=== PATIENT | male | born 1940 | race African-American/Black ===

== ENCOUNTER 2018-10-07 12:46 | Emergency (ER) | payer MEDICARE, OTHER, SELFPAY ==
[2018-10-07 12:56] VITALS: BP 135/89; PULSE 113; RESP 20; TEMP 37.1; O2SAT 94; BMI 38.6
--- NOTE | 2018-10-07 13:42 | ED.MALEGU ---
HPI - Male Genitourinary <Judy Singh PA-C - Last Filed: 10/07/18 21:41> General Chief complaint: Urogenital-Male Stated complaint: possible kidney stones Time Seen by Provider: 10/07/18 13:35 Source: patient Mode of arrival: ambulatory Limitations: no limitations History of Present Illness HPI Narrative: This 77-year-old male comes to ED due to urinary symptoms. He states that last night he started to have burning with urination and he saw blood in his urine as well as ?debris? with different sized pieces. He states that he had a lot of urinary frequency last night, probably up 14-15 times. He states that symptoms are somewhat better today, thinks he saw a little bit of blood in his urine this morning along with the debris. Frequency is improved. He denies nausea or vomiting. He denies fever, chills, sweats. He states that he has had some increased back ache in the last week or 2, denies any new trauma or localized pain and describes this as more stiffness. He denies any bowel habit changes. He states that he did eat crab last night which he does not do often. He denies abdominal pain but states he feels somewhat bloated all over. He denies chest pain, dyspnea, new pain in the extremities or swelling or other new complaints on systems review today. He states he does have a history of abnormal CT and diverticulitis which he did follow up in [place]. He denies any other medical history Related Data Home Medications Medication Instructions Recorded Confirmed aspirin 81 mg PO QDAY #0 11/18/17 Previous Rx's Medication Instructions Recorded docusate sodium [Colace] 100 mg PO BID #15 cap 06/24/16 glycerin (adult) 1 ea RC SEE INSTRUCTIONS #12 06/24/16 magnesium citrate 273 ml PO SEE INSTRUCTIONS #1 bot 06/24/16 polyethylene glycol 3350 [Miralax] 17 gm PO QDAY #14 07/19/16 cyclobenzaprine 10 mg PO TIDP PRN #14 tab 11/18/17 sulfamethoxazole-trimethoprim 1 tab PO Q12H #14 tab 10/07/18 [Bactrim DS] Allergies Allergy/AdvReac Type Severity Reaction Status Date / Time ciprofloxacin [From CIPRO] Allergy Unknown Unverified 01/02/18 13:07 indomethacin [From INDOCIN] Allergy Unknown Unverified 01/02/18 13:07 Review of Systems <Judy Singh PA-C - Last Filed: 10/07/18 21:41> Review of Systems ROS Unobtainable: All systems reviewed & are unremarkable except as noted in HPI and below PFSH <Judy Singh PA-C - Last Filed: 10/07/18 21:41> Comment: Never smoker, rare EtOH Exam <Judy Singh PA-C - Last Filed: 10/07/18 21:41> Narrative Exam Narrative: GENERAL APPEARANCE: Patient sitting comfortably, in no distress. HEENT: PERRL, EOMI, no scleral icterus NECK: Supple LUNGS: Clear to auscultation bilaterally. HEART: Rate and rhythm regular, normal S1 and S2, no S3 or S4. ABDOMEN: Soft, nontender, nondistended, bowel sounds present x 4 quadrants, no masses palpable, no hepatosplenomegaly. No CVAT or suprapubic tenderness EXTREMITIES: No edema, no calf tenderness DERMATOLOGIC: No jaundice or exanthem NEUROLOGIC: Alert and oriented with normal speech and coordination Initial Vital Signs Initial Vital Signs: Vital Signs Temperature 98.7 F 10/07/18 12:56 Pulse Rate 113 H 10/07/18 12:56 Respiratory Rate 20 10/07/18 12:56 Blood Pressure 135/89 10/07/18 12:56 Pulse Oximetry 94 10/07/18 12:56 <Sadie Connolly DO - Last Filed: 10/08/18 07:56> Initial Vital Signs Initial Vital Signs: Vital Signs Temperature 98.7 F 10/07/18 12:56 Pulse Rate 113 H 10/07/18 12:56 Respiratory Rate 20 10/07/18 12:56 Blood Pressure 135/89 10/07/18 12:56 Pulse Oximetry 94 10/07/18 12:56 Course <Judy Singh PA-C - Last Filed: 10/07/18 21:41> Additional Information: The patient was feeling significantly improved and was sleeping prior to departure. Symptoms had improved significantly from last night. No acute findings on his KUB CT though he describes significant debris in urine and could have passed a stone. He does have evidence of urinary infection, not clearly pyelo versus cystitis, no evidence of ongoing prostatitis. Started on Bactrim and advised follow-up with his PCP in 2-3 days to assess progress, review cultures, and make sure hematuria has resolved. He agreed to return if any acutely worsening symptoms again. Also discussed mesenteric lesion with him again. From what he describes he has seen GI and surgeon in [place]. He was given CT on disc and agrees to follow up on this as well. Orders Ordered: ED Orders 10/07/18 12:50 Urine Culture Stat Urine Microscopic Stat 10/07/18 14:00 CT kidney ureter bladder (KUB) Stat Vital Signs - 8 hr 10/07/18 12:56 10/07/18 14:30 10/07/18 15:00 Temperature 98.7 F Pulse Rate 113 H 100 H 101 H Respiratory Rate 20 Blood Pressure 135/89 Blood Pressure [Right Arm] 122/75 118/65 Pulse Oximetry 94 94 92 <Sadie Connolly DO - Last Filed: 10/08/18 07:56> Orders Ordered: ED Orders 10/07/18 12:50 Urine Culture Stat Urine Microscopic Stat 10/07/18 14:00 CT kidney ureter bladder (KUB) Stat Vital Signs - 8 hr 10/07/18 12:56 10/07/18 14:30 10/07/18 15:00 Temperature 98.7 F Pulse Rate 113 H 100 H 101 H Respiratory Rate 20 Blood Pressure 135/89 Blood Pressure [Right Arm] 122/75 118/65 Pulse Oximetry 94 94 92 MDM - Male Genitourinary <Judy Singh PA-C - Last Filed: 10/07/18 21:41> Lab Data Lab Results 10/07/18 Range/Units 12:50 Urine RBC >100/hpf (0-5/HPF) Urine WBC 30-100/hpf H (0-5/HPF) Urine Bacteria Few (2-10) H (None) Ur Culture Indicated? Specimen cultured Urine Dip Bedside Urine Glucose Negative Bedside Urine Bilirubin - Negative Bedside Urine Ketone - Negative Urine Specific Cassel 1.020 Bedside Urine Occult Blood +++ Bedside Urine pH 6.0 Bedside Urine Protein + 30 Bedside Urine Urobilinogen +/- 1mg Bedside Urine Nitrite - Negative Bedside Urine Leukocytes + 70 Esterase <DO Arnoldo Modi Last Filed: 10/08/18 07:56> Lab Data Lab Results 10/07/18 Range/Units 12:50 Urine RBC >100/hpf (0-5/HPF) Urine WBC 30-100/hpf H (0-5/HPF) Urine Bacteria Few (2-10) H (None) Ur Culture Indicated? Specimen cultured Urine Dip Bedside Urine Glucose Negative Bedside Urine Bilirubin - Negative Bedside Urine Ketone - Negative Urine Specific Cassel 1.020 Bedside Urine Occult Blood +++ Bedside Urine pH 6.0 Bedside Urine Protein + 30 Bedside Urine Urobilinogen +/- 1mg Bedside Urine Nitrite - Negative Bedside Urine Leukocytes + 70 Esterase Discharge Plan Departure Patient Disposition: Home Clinical Impression: Cystitis Discharge Date/Time: 10/07/18 15:47 Interventions: ED Discharge Assessment Last Done: 10/07/18 15:46 Instructions: DI for Urinary Tract Infection (UTI) Activity Restrictions/Additional Instructions: I have sent a prescription in to your pharmacy to treat for a urinary infection. It is not clear that you had a kidney or prostate infection today, however I want you to be sure to follow up with your PCP in a few days to determine whether you might need a longer course of antibiotics. You should start the antibiotic as soon as you pick it up today as we want you to take that while your culture is pending. You should return if you have any acutely worsening symptoms, or new symptoms as we talked about such as abdominal pain, vomiting or fever. In addition, the abnormality on your CT that you had seen the GI doctor about and surgeon in [place] is still there. Please make sure you follow-up on this. I have given you a copy of your radiology study on disc today so that this can be compared to any studies done in outside facilities. Prescriptions: New sulfamethoxazole-trimethoprim [Bactrim DS] 800-160 mg tablet 1 tab PO Q12H Qty: 14 RF: 0 No Action docusate sodium [Colace] 100 MG capsule 100 mg PO BID Qty: 15 RF: 0 magnesium citrate 296 ML solution 273 ml PO SEE INSTRUCTIONS Qty: 1 RF: 0 glycerin (adult) 1 EACH suppository 1 ea RC SEE INSTRUCTIONS Qty: 12 RF: 0 polyethylene glycol 3350 [Miralax] 17 GM powder in packet 17 gm PO QDAY Qty: 14 RF: 0 aspirin 81 MG tablet,delayed release (DR/EC) 81 mg PO QDAY Qty: 0 RF: 0 cyclobenzaprine 10 MG tablet 10 mg PO TIDP PRNQty: 14 RF: 0 Referrals: Destin Lopez MD [Primary Care Provider] - <Sadie Connolly DO - Last Filed: 10/08/18 07:56> Cosign ED Attending Cosignature Attestation: I was immediately available in the department for consultation. This documentation has been reviewed and I agree with assessment and plan. Supervised by Sadie Connolly DO
--- NOTE | 2018-10-07 14:00 | DI.CT.S_ITS ---
PROCEDURE: CT KIDNEY URETER BLADDER (KUB) INDICATIONS: hematuria, debris, back pain TECHNIQUE: Noncontrast 5 mm thick sections acquired from the diaphragms to the symphysis. 5 mm thick coronal and sagittal reformats were then performed. For radiation dose reduction, the following was used: automated exposure control, adjustment of mA and/or kV according to patient size. COMPARISON: [facility], CT, CHEST/ABD/PEL W&WO CONTRAST, 11/18/2017, 19:57. [facility], CR, CHEST 1 VIEW, 11/18/2017, 19:28. FINDINGS: Image quality: Excellent. Lung bases: Lung bases are clear. Heart size is normal. A small hiatal hernia is incidentally noted. Urinary system: Both kidneys are normal in size. No kidney stones. No hydronephrosis or perinephric fat stranding. Both ureters appear non-dilated throughout their expected courses. The prostate gland is enlarged, measuring 6.4 cm. [place] calcifications can be seen within it. There is moderate circumferential bladder wall thickening is seen. No focal bladder wall thickening is seen. No bladder stones are seen. Other solid organs: Liver is normal in size. Diffuse fatty liver infiltration is noted. Gallbladder demonstrates no significant noncontrast abnormality. Pancreas is normal in contours. Spleen is normal in size. No adrenal nodules. Peritoneum and bowel: Within the left mesentery, there is an apparent spiculated soft tissue lesion seen, which is similar to the prior examination. Diverticulosis is seen, without findings of active diverticulitis. Unenhanced bowel loops demonstrate normal wall thickness and caliber. No free fluid or air. Incidental note is made of a normal-appearing appendix. Nodes and vessels: No retroperitoneal or mesenteric adenopathy by size criteria. Aorta and inferior vena cava are normal in caliber. Atherosclerotic calcification is noted. Abdominal wall: A mild periumbilical hernia is seen, containing fat. Pelvis: No free pelvic fluid. No enlarged inguinal or pelvic lymph nodes are seen. There is a fat-containing right inguinal hernia seen. Bones: No suspicious bony lesions. No vertebral body compression fractures. Age-appropriate bony degenerative changes are seen. Mild dextroconvex scoliotic curvature is seen. IMPRESSION: No stones or hydronephrosis can be seen. Spiculated focus within the left mesentery, which is similar to the prior examination. Differential diagnosis for this includes carcinoid tumor. Please correlate with known patient history. Prominent prostate with moderate circumferential bladder wall thickening. Please correlate with bladder outlet obstruction. Incidental note is made of: Small hiatal hernia Fatty liver infiltration Fat-containing periumbilical hernia Normal appendix Fat-containing right inguinal hernia Dictated by: Deejay Pham M.D. on 10/07/2018 at 13:19 Approved by: Deejay Pham M.D. on 10/07/2018 at 13:25
[2018-10-07 14:20] LABS: Bacteria Urine Few (2-10); Culture Indicated Urine Specimen Cultured; RBC Urine >100/HPF (0-5/HPF); WBC Urine 30-100/HPF (0-5/HPF)
[2018-10-07 14:30] VITALS: BP 122/75; PULSE 100; O2SAT 94
[2018-10-07 15:00] VITALS: BP 118/65; PULSE 101; O2SAT 92
[2018-10-07 15:30] VITALS: BP 117/70; PULSE 101; O2SAT 92
[2018-10-07 15:46] VITALS: BP 117/70; PULSE 104; RESP 20; O2SAT 95
== END 2018-10-07 15:47 | disposition home or self-care (01) ==
PROVIDERS: Emergency Medicine; Emergency Provider Internal Medicine; PCP Family Medicine
DX: N30.90 Cystitis, unspecified without hematuria (principal)
CPT/HCPCS: 74176; 81003; 81015; 87077; 87086; 87186; 99283; 99284

== ENCOUNTER → 2018-12-03 07:34 | Outpatient (CLI) | payer MEDICARE, OTHER, SELFPAY ==
--- NOTE | 2018-12-03 | DI.MRI.S_ITS ---
PROCEDURE: MR ABDOME PELVIS WWO CON INDICATIONS: ABNORMAL ABDOMINAL CT/DIVERTICULITIS TECHNIQUE: Coronal HASTE, axial 2D FLASH in- and [id number]; axial breath-hold T2 FSE; dynamic axial VIBE during IV gadolinium administration; postgadolinium coronal VIBE or 2D FLASH with fat saturation from the hepatic dome to the iliac crests. COMPARISON: [facility], CT, CT KIDNEY URETER BLADDER (KUB), 10/07/2018, 13:57. [facility], CT, CHEST/ABD/PEL W&WO CONTRAST, 11/18/2017, 19:57. [facility], CT, CT ABD PELVIS W CON, 11/14/2016, 13:17. FINDINGS: Image quality: Excellent. Lung bases: No masses or pleural effusions. Mildly enlarged heart. Solid organs: Mild diffuse signal drop throughout the liver on out of phase T1 imaging. Peripheral arterial enhancement and subsequent wash-in of the lesion in the right dome the liver consistent with known hepatic hemangioma. No other liver lesions. Adrenal glands, pancreas, spleen, and kidneys are normal. Small cortical cyst anterior left kidney. No hydronephrosis. Nodes and vessels: Normal caliber and retroperitoneal vessels. No adenopathy. Bowel and peritoneum: Chronic scarring and tethering of sigmoid colon and small bowel loops in left midabdomen into an enhancing central point suggestive of scar tissue. The morphology of this area has not significantly changed in 2 years. No evidence of obstruction. There are a few surrounding mildly prominent mesenteric lymph nodes without suspicious bulky adenopathy. Diverticulosis in the proximal and transverse colon is seen. No enhancement to suggest acute inflammation. Pelvis: The prostate gland is significantly enlarged. The urinary bladder wall is of normal thickness. Normal sized inguinal lymph nodes are present. No bulky adenopathy. Pelvic vessels are normal. Bones and soft tissues: Normal marrow signal without enhancement. 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 IMPRESSION: 1. 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 2. Diverticulosis without findings of acute diverticulitis. 3. Stable hepatic hemangioma. 4. Prostatomegaly. 5. Mild cardiomegaly. Dictated by: Yamilex Hurtado M.D. on 12/03/2018 at 16:58 Approved by: Yamilex Hurtado M.D. on 12/03/2018 at 17:14
[2018-12-03 08:15] LABS: BUN Creatinine Ratio 15.5 (6-22); Blood Urea Nitrogen 17 mg/dL (9-20); Estimated Glomerular Filt Rate > 60.0 mL/min (>60)
== END ==
PROVIDERS: PCP Family Medicine; Visit Provider Internal Medicine Gastroenterology
DX: R93.3 Abnormal findings on diagnostic imaging of other parts of digestive tract (principal)
CPT/HCPCS: 36415; 72197; 82565; 84520; A9579

== ENCOUNTER 2018-12-26 09:55 | Emergency (ER) | payer MEDICARE, OTHER, SELFPAY ==
[2018-12-26 10:10] VITALS: BP 157/89; PULSE 87; RESP 18; TEMP 37; O2SAT 95; BMI 41.1
--- NOTE | 2018-12-26 10:41 | ED.MALEGU ---
HPI - Male Genitourinary General Chief complaint: Urogenital-Male Stated complaint: kidney pain Time Seen by Provider: 12/26/18 10:08 Source: patient Mode of arrival: ambulatory Limitations: no limitations History of Present Illness HPI Narrative: Patient complains of left flank and back pain that started a couple of days ago. He states that he has not had dysuria or noticed gross hematuria. No nausea or vomiting. No fevers. No diarrhea. No back injury. Patient has a history of these symptoms about 2 months ago, and was thought to have possibly passed a stone at that time, though was no longer visible on CT. Patient was also diagnosed with a UTI at that time. Patient states that his back hurts worse when he moves. No numbness or tingling. No bowel or bladder incontinence or retention. No other complaints at this time. Related Data Home Medications Medication Instructions Recorded Confirmed aspirin 81 mg PO QDAY #0 11/18/17 Previous Rx's Medication Instructions Recorded docusate sodium [Colace] 100 mg PO BID #15 cap 06/24/16 glycerin (adult) 1 ea RC SEE INSTRUCTIONS #12 06/24/16 magnesium citrate 273 ml PO SEE INSTRUCTIONS #1 bot 06/24/16 polyethylene glycol 3350 [Miralax] 17 gm PO QDAY #14 07/19/16 cyclobenzaprine 10 mg PO TIDP PRN #14 tab 11/18/17 sulfamethoxazole-trimethoprim 1 tab PO Q12H #14 tab 10/07/18 [Bactrim DS] hydrocodone-acetaminophen 1 tab PO Q6H PRN #14 tab 12/26/18 Allergies Allergy/AdvReac Type Severity Reaction Status Date / Time ciprofloxacin [From CIPRO] Allergy Unknown Unverified 01/02/18 13:07 indomethacin [From INDOCIN] Allergy Unknown Unverified 01/02/18 13:07 Review of Systems Constitutional Denies chills, Denies fever(s), Denies lethargy and Denies weakness Eyes Denies change in vision, Denies eye discharge, Denies irritation and Denies loss of vision ENT Ears, Nose, Mouth, and Throat: Denies change in voice, Denies neck pain and Denies sore throat Cardiovascular Denies chest pain, Denies irregular heart rhythm, Denies lightheadedness, Denies palpitations, Denies dyspnea, Denies dyspnea on exertion and Denies orthopnea Respiratory Denies cough, Denies dyspnea, Denies dyspnea on exertion and Denies wheezing Gastrointestinal Gastrointestinal: Denies abdominal pain, Denies change in bowel habits, Denies diarrhea, Denies nausea and Denies vomiting Genitourinary Denies hematuria, Denies flank pain, Denies urinary incontinence and Denies urinary urgency Musculoskeletal Reports back pain and Denies neck pain Integumentary/Breasts Denies pruritus, Denies erythema, Denies rash and Denies wounds Neurologic Denies confusion, Denies loss of vision and Denies weakness Psychiatric Denies anxiety, Denies confusion, Denies depression, Denies homicidal ideation and Denies suicidal ideation Endocrine Denies palpitations Hematologic/Lymphatic Denies easy bruising Allergic/Immunologic Denies wheezing [facility] Medical History Diverticulitis (Resolved) Surgical History History of circumcision (Resolved) Family History Other Family history non-contributory Social History Smoking Status: Never smoker Family History Other Family history non-contributory Social History Smoking Status: Never smoker Exam Initial Vital Signs Initial Vital Signs: Vital Signs Temperature 98.6 F 12/26/18 10:10 Pulse Rate 87 12/26/18 10:10 Respiratory Rate 18 12/26/18 10:10 Blood Pressure 157/89 H 12/26/18 10:10 Pulse Oximetry 95 12/26/18 10:10 Const General: cooperative and well developed Nutritional Appearance: well nourished Orientation: alert, awake, oriented x3 and not confused [facility] Head: normocephalic and atraumatic Ears: external ears normal Nose: external nose normal and No nasal discharge Face and sinus: face symmetric and No dry mucous membranes Mouth: oral mucosae normal and moist mucous membranes Teeth and gingiva: dentition normal Eyes General: appearance normal, both eyes and all related structures Eyelids: eyelids normal Conjunctivae: conjunctivae normal Sclera: sclerae normal Pupils: PERRL EOM: EOM intact bilaterally Neck Neck: normal visual inspection, trachea midline, No lymphadenopathy, No midline deformity and No JVD Lymphatic: No lymphedema Chest Chest: normal inspection of the chest Resp Effort & Inspection: normal respiratory effort, able to speak in complete sentences, no respiratory distress and no use of accessory muscles Auscultation: clear to auscultation bilaterally, no rales, no rhonchi and no wheezes Cardio Rate: regular rate Rhythm: regular rhythm Heart Sounds: no click, no gallops, no murmurs and no rubs Pulses: normal peripheral pulses GI Inspection: non-distended Palpation: soft, no hepatosplenomegaly, No guarding, No pulsatile mass and No tender Auscultation: normal bowel sounds Back/Spine/Pelvis Back: CVA tenderness Cervical Spine: cervical ROM normal and No pain with cervical ROM Thoracic/Lumbar Spine: thoracic and lumbar spine normal to inspection Other: Patient has tenderness over his left CVA, and midback paraspinal musculature on the left. No tenderness at any level of the spine. No sciatic tenderness. Skin General: no rashes or lesions noted, No jaundice and No petechiae Neuro General: alert, oriented x3, gait normal and no focal motor deficits Speech: speech normal Extrem General: full ROM, no clubbing, cyanosis or edema, no pedal edema and no calf tenderness Psych Appearance: well kempt Mental Status: mental status grossly normal Attitude: cooperative Thought Content: normal and suicidality Judgment: judgment good Course Course Narrative: Patient was worked up with urinalysis, labs, and CT scan, as well as treated symptomatically in the emergency department. His workup was unremarkable. CT scan did continue to show the spiculated structure, which has been noted multiple times on previous CT scans, and is unchanged in size. The patient is well aware of this, and has had followup previously for this finding. Patient was found to be feeling better after symptomatic intervention, and I did discuss with the patient that his symptoms are most likely musculoskeletal in nature. We have discussed that he should follow up with his doctor to determine whether an MRI should be performed to further evaluate his back pain. Patient is neurologically intact, and I feel he is stable for discharge home. We have discussed symptomatic management at home, as well as the usual indications for return. Orders Ordered: ED Orders 12/26/18 10:45 CT kidney ureter bladder (KUB) Stat 12/26/18 11:00 Complete Blood Count AUTO DIFF Stat Comprehensive Metabolic Panel Stat Discontinued Medications Hydrocodone Bitart/Acetaminophen ([place] 5/325) 1 tab PO NOW ONE Stop: 12/26/18 10:40 Last Admin: 12/26/18 10:55 Dose: 1 tab Ketorolac Tromethamine (Toradol) 60 mg IM NOW ONE Stop: 12/26/18 10:40 Last Admin: 12/26/18 10:57 Dose: 60 mg Vital Signs - 8 hr 12/26/18 11:40 12/26/18 13:30 Pulse Rate 79 78 Respiratory Rate 18 Blood Pressure 141/98 H Blood Pressure [Left Arm] 146/95 H Pulse Oximetry 97 97 MDM - Male Genitourinary Medical Records Attestation: I reviewed the patient's medical records. Lab Data Attestation: I reviewed the patient's lab results. Result diagrams: 12/26/18 11:00 12/26/18 11:00 Lab Results 12/26/18 12/26/18 Range/Units 11:00 11:00 WBC 7.5 (4.5-11.0) X10^3/uL RBC 5.21 (4.5-5.9) X10^6/uL Hgb 14.4 (13.5-17.5) g/dL Hct 44.2 (41-53) % MCV 84.8 (80-100) fL MCH 27.7 (26-34) PG MCHC 32.7 (30-36) % RDW 15.1 H (11.6-14.8) % Plt Count 194 (150-400) X10^3/uL Neut % (Auto) 60.7 (50-75) % Lymph % (Auto) 32.2 (25-40) % [place] % (Auto) 4.4 (3-14) % Eos % (Auto) 1.6 L (2-4) % Baso % (Auto) 1.1 (0-2) % Neut # (Auto) 4500 (0221-5017) /uL Lymph # (Auto) 2400 (6729-1212) /uL Bucks # (Auto) 300 (0-900) /uL Eos # (Auto) 100 (0-450) /uL Baso # (Auto) 100 (0-100) /uL Sodium 139 (137-145) mmol/L Potassium 4.3 (3.4-5.1) mmol/L Chloride 104 (98-107) mmol/L Carbon Dioxide 24 (22-32) mmol/L BUN 15 (9-20) mg/dL Creatinine 1.00 (0.66-1.25) mg/dL Estimated GFR > 60.0 (>60) mL/min BUN/Creatinine Ratio 15.0 (6-22) Glucose 125 H (80-110) mg/dL Calcium 9.6 (8.4-10.2) mg/dL Total Bilirubin 0.3 (0.2-1.3) mg/dL AST 26 (17-59) IU/L ALT 29 (21-72) IU/L Alkaline Phosphatase 73 (38-126) U/L Total Protein 7.8 (6.3-8.2) g/dL Albumin 4.3 (3.5-5.0) g/dL Globulin 3.5 (1.7-4.1) g/dL Albumin/Globulin Ratio 1.2 (1.0-2.8) Urine Dip Bedside Urine Glucose Negative Bedside Urine Bilirubin - Negative Bedside Urine Ketone - Negative Urine Specific [place] 1.015 Bedside Urine Occult Blood - Negative Bedside Urine pH 6.0 Bedside Urine Protein - Negative Bedside Urine Urobilinogen - Negative Bedside Urine Nitrite - Negative Bedside Urine Leukocytes - Negative Esterase Imaging Data CT scan - abdomen: Radiologist's impression: PROCEDURE: CT KIDNEY URETER BLADDER (KUB) INDICATIONS: left flank pain TECHNIQUE: Noncontrast 5 mm thick sections acquired from the diaphragms to the symphysis. 5 mm thick coronal and sagittal reformats were then performed. For radiation dose reduction, the following was used: automated exposure control, adjustment of mA and/or kV according to patient size. COMPARISON: [facility], MR, MR ABDOMEN PELVIS WWO CON, 12/03/2018, 10:47. [facility], CT, CT ABD PELVIS W CON, 10/10/2016, 13:23. [facility], CT, CT ABD PELVIS W CON, 11/14/2016, 13:17. [facility], CT, CHEST/ABD/PEL W&WO CONTRAST, 11/18/2017, 19:57[facility], CT, CT KIDNEY URETER BLADDER (KUB), 10/07/2018, 13:57. FINDINGS: Image quality: Excellent. Lung bases: Lung bases are clear. Heart size is normal. There is a small hiatal hernia. Urinary system: Both kidneys are normal in size. No kidney stones. No hydronephrosis or perinephric fat stranding. Both ureters appear non-dilated throughout their expected courses. Bladder wall thickness is normal; no calcified bladder stones. Prostate is enlarged. Other solid organs: Liver is normal in size. Gallbladder is normal. Pancreas is normal in contours. Spleen is normal in size. No adrenal nodules. Peritoneum and bowel: There are scattered colonic diverticula. Mild stranding in the left side of mesentery with a spiculated appearance, unchanged from several prior examinations. Unenhanced bowel loops demonstrate normal wall thickness and caliber. No free fluid or air. Nodes and vessels: There are several prominent mesenteric lymph node in the left abdomen measuring up to 1.2 cm. No retroperitoneal adenopathy by size criteria. Aorta and inferior vena cava are normal in caliber. Abdominal wall: Tiny fat-containing umbilical hernia is noted. Pelvis: No free pelvic fluid. No inguinal hernias or adenopathy. Bones: No suspicious bony lesions. No vertebral body compression fractures. IMPRESSION: 1. No renal stone hydronephrosis. 2. Diverticulosis without acute diverticulitis. 3. There is spiculated appearance in the left side of mesentery and several prominent mesenteric lymph nodes. Overall, the appearance is unchanged from several prior examinations. Again differential diagnoses include scar/adhesion and carcinoid tumor. Please correct clinically. 4. Enlarged prostate. The result was discussed with Dr. Abdul prior to dictation. Dictated by: Theresa Gerard M.D. on 12/26/2018 at 11:01 Approved by: Theresa Gerard M.D. on 12/26/2018 at 11:18 Discharge Plan Departure Patient Disposition: Home Clinical Impression: Back pain Qualifiers: Back pain location: low back pain Chronicity: acute Back pain laterality: left Sciatica presence: without sciatica Qualified Code(s): M54.5 - Low back pain Discharge Date/Time: 12/26/18 13:35 Interventions: ED Discharge Assessment Last Done: 12/26/18 13:30 Instructions: DI for Low Back Pain Activity Restrictions/Additional Instructions: Your labs, urinalysis, and CT all look good. The CT continues to show the same spiculated mass that it has previously, and you should continue to follow up with your primary doctor about this. There has been no change in the spiculated area, however, so there is no evidence of a serious process going on at this time. You may take the medication, as needed for your pain. Please follow-up with your primary doctor to discuss whether you may need an MRI to further evaluate your recurrent back pain. At this time there is no evidence of a kidney stone. Prescriptions: New hydrocodone-acetaminophen 5-325 mg tablet 1 tab PO Q6H PRN (Reason: pain) Qty: 14 RF: 0 No Action docusate sodium [Colace] 100 MG capsule 100 mg PO BID Qty: 15 RF: 0 magnesium citrate 296 ML solution 273 ml PO SEE INSTRUCTIONS Qty: 1 RF: 0 glycerin (adult) 1 EACH suppository 1 ea RC SEE INSTRUCTIONS Qty: 12 RF: 0 polyethylene glycol 3350 [Miralax] 17 GM powder in packet 17 gm PO QDAY Qty: 14 RF: 0 aspirin 81 MG tablet,delayed release (DR/EC) 81 mg PO QDAY Qty: 0 RF: 0 cyclobenzaprine 10 MG tablet 10 mg PO TIDP PRNQty: 14 RF: 0 sulfamethoxazole-trimethoprim [Bactrim DS] 800-160 mg tablet 1 tab PO Q12H Qty: 14 RF: 0 Referrals: Destin Lopez MD [Primary Care Provider] -
--- NOTE | 2018-12-26 10:45 | DI.CT.S_ITS ---
PROCEDURE: CT KIDNEY URETER BLADDER (KUB) INDICATIONS: left flank pain TECHNIQUE: Noncontrast 5 mm thick sections acquired from the diaphragms to the symphysis. 5 mm thick coronal and sagittal reformats were then performed. For radiation dose reduction, the following was used: automated exposure control, adjustment of mA and/or kV according to patient size. COMPARISON: [facility], MR, MR ABDOMEN PELVIS WWO CON, 12/03/2018, 10:47. [facility], CT, CT ABD PELVIS W CON, 10/10/2016, 13:23. [facility], CT, CT ABD PELVIS W CON, 11/14/2016, 13:17. [facility], CT, CHEST/ABD/PEL W&WO CONTRAST, 11/18/2017, 19:57. [facility], CT, CT KIDNEY URETER BLADDER (KUB), 10/07/2018, 13:57. FINDINGS: Image quality: Excellent. Lung bases: Lung bases are clear. Heart size is normal. There is a small hiatal hernia. Urinary system: Both kidneys are normal in size. No kidney stones. No hydronephrosis or perinephric fat stranding. Both ureters appear non-dilated throughout their expected courses. Bladder wall thickness is normal; no calcified bladder stones. Prostate is enlarged. Other solid organs: Liver is normal in size. Gallbladder is normal. Pancreas is normal in contours. Spleen is normal in size. No adrenal nodules. Peritoneum and bowel: There are scattered colonic diverticula. Mild stranding in the left side of mesentery with a spiculated appearance, unchanged from several prior examinations. Unenhanced bowel loops demonstrate normal wall thickness and caliber. No free fluid or air. Nodes and vessels: There are several prominent mesenteric lymph node in the left abdomen measuring up to 1.2 cm. No retroperitoneal adenopathy by size criteria. Aorta and inferior vena cava are normal in caliber. Abdominal wall: Tiny fat-containing umbilical hernia is noted. Pelvis: No free pelvic fluid. No inguinal hernias or adenopathy. Bones: No suspicious bony lesions. No vertebral body compression fractures. IMPRESSION: 1. No renal stone hydronephrosis. 2. Diverticulosis without acute diverticulitis. 3. There is spiculated appearance in the left side of mesentery and several prominent mesenteric lymph nodes. Overall, the appearance is unchanged from several prior examinations. Again differential diagnoses include scar/adhesion and carcinoid tumor. Please correct clinically. 4. Enlarged prostate. The result was discussed with Dr. Abdul prior to dictation. Dictated by: Theresa Gerard M.D. on 12/26/2018 at 11:01 Approved by: Theresa Gerard M.D. on 12/26/2018 at 11:18
[2018-12-26] MEDS: HYDROCODONE/ACET 5/325 TABLET 1 TAB PO (10:55)
[2018-12-26] MEDS: KETOROLAC 60 MG/2 ML VIAL IM (10:57)
[2018-12-26 11:11] LABS: Add Manual Diff / Slide Review NO; Basophils Absolute Auto 100 /uL (0-100); Basophils Percent Auto 1.1 % (0-2); Eosinophils Absolute Auto 100 /uL (0-450); Eosinophils Percent Auto 1.6 % (2-4); Hematocrit 44.2 % (41-53); Hemoglobin 14.4 g/dL (13.5-17.5); Lymphocytes Absolute Auto 2400 /uL (1100-4500); Lymphocytes Percent Auto 32.2 % (25-40); Mean Corpuscular HGB Conc 32.7 % (30-36); Mean Corpuscular Hemoglobin 27.7 PG (26-34); Mean Corpuscular Volume 84.8 fL (80-100); Monocytes Absolute Auto 300 /uL (0-900); Monocytes Percent Auto 4.4 % (3-14); Neutrophils Absolute Auto 4500 /uL (1500-7000); Neutrophils Percent Auto 60.7 % (50-75); Platelet Count 194 X10^3/uL (150-400); Red Blood Cell Count 5.21 X10^6/uL (4.5-5.9); Red Cell Distribution Width 15.1 % (11.6-14.8); White Blood Cell Count 7.5 X10^3/uL (4.5-11.0)
[2018-12-26 11:21] LABS: Alanine Aminotransferase 29 IU/L (21-72); Albumin 4.3 g/dL (3.5-5.0); Albumin Globulin Ratio 1.2 (1.0-2.8); Alkaline Phosphatase 73 U/L (38-126); Aspartate Aminotransferase 26 IU/L (17-59); Bilirubin Total 0.3 mg/dL (0.2-1.3); Blood Urea Nitrogen 15 mg/dL (9-20); Calcium 9.6 mg/dL (8.4-10.2); Carbon Dioxide 24 mmol/L (22-32); Chloride 104 mmol/L (98-107); Estimated Glomerular Filt Rate > 60.0 mL/min (>60); Globulin 3.5 g/dL (1.7-4.1); Glucose 125 mg/dL (80-110); HEMOLYSIS < 15 (0-50); Potassium 4.3 mmol/L (3.4-5.1); Sodium 139 mmol/L (137-145); Total Protein 7.8 g/dL (6.3-8.2)
[2018-12-26 11:40] VITALS: BP 146/95; PULSE 79; RESP 18; O2SAT 97
[2018-12-26 13:30] VITALS: BP 141/98; PULSE 78; O2SAT 97
== END 2018-12-26 13:35 | disposition home or self-care (01) ==
PROVIDERS: Internal Medicine Cardiovascular Disease; Emergency Provider Emergency Medicine; PCP Family Medicine
DX: M54.5 Low back pain (principal)
CPT/HCPCS: 74176; 80053; 81003; 85025; 96372; 99283; 99284; J1885

== ENCOUNTER 2019-01-29 07:29 | Day surgery (SDC) | payer MEDICARE, OTHER, SELFPAY ==
--- NOTE | 2019-01-29 | PATH_ITS ---
[facility] Accession Number: [id number] . 01 Material submitted: . PART A: colon - TRANSVERSE COLON POLYPS PART B: sigmoid colon - SIGMOID POLYP . 01 Clinical history: . A: POLYPS X3 . 02 Diagnosis: A. Transverse Colon, Polyps: Fragments of tubular adenoma and fragments of hyperplastic polyp (three polyps removed). . B. Sigmoid Colon, Polyp: Hyperplastic polyp. MRV/01/30/2019 . 02 Electronically signed: . Richard Carl MD, PhD, Pathologist NPI- [id number] . 01 Gross description: . Part A: TRANSVERSE COLON POLYPS: Received in formalin are 4 fragment(s) of gabriel, soft tissue measuring 0.1 x 0.1 x 0.1 cm to 0.4 x 0.2 x 0.2 cm which is entirely submitted and submitted entirely in 1 cassette(s) Part B: SIGMOID POLYP: Received in formalin is 1 fragment(s) of gabriel, soft tissue measuring 0.3 x 0.2 x 0.2 cm which is entirely submitted and submitted entirely in 1 cassette(s) /[facility] /[facility] . 02 Pathologist provided ICD-10: D12.3, K63.5 . 02 CPT . 568630, [id number] Performed at: 01 [facility] [address], [place], [place] [id number] MD Matt Perry MD Phone: [phone] Performed at: 02 [facility] [address] [place], [place] [id number] MD Anjelica Lowery MD Phone: [phone]
[2019-01-29] MEDS: SODIUM CHLORIDE 0.9% 1,000 ML 21 ML IV (07:45)
[2019-01-29 08:13] VITALS: BP 150/91; PULSE 78; RESP 16; TEMP 36.1; O2SAT 97; BMI 37.4
--- NOTE | 2019-01-29 08:35 | PM.HP.1 ---
History of Present Illness Chief complaint: [id number] Patient History Medical History Cardiomegaly (Acute) Enlarged prostate (Acute) Diverticulitis (Resolved) Surgical History History of circumcision (Resolved) Family History Other Family history non-contributory Social History household members: spouse Smoking Status: Never smoker Family & Social History Family History Other Family history non-contributory Social History: household members spouse Tobacco & Substance use: Smoking Status Never smoker alcohol intake frequency 0-2 drinks per day Substance Use Type does not use Meds Home Medications Medication Instructions Recorded Confirmed Type aspirin 81 mg PO QDAY #0 11/18/17 01/29/19 History tamsulosin 0.4 mg PO QPM 01/29/19 01/29/19 History Allergies Allergy/AdvReac Type Severity Reaction Status Date / Time ciprofloxacin [From CIPRO] Allergy Intermediate Itchy Verified 01/29/19 07:50 indomethacin [From INDOCIN] Allergy Intermediate Itchy Verified 01/29/19 07:50 Exam Vital Signs (past 8 hours): - 01/29/19 08:13 Temperature 97.0 F L Pulse Rate 78 Respiratory Rate 16 Blood Pressure 150/91 H Pulse Oximetry 97 Oxygen Delivery Method Room Air Narrative Exam Narrative: Aa0 x3, pupils equal round react to light, lungs clear, abdomen soft nontender nondistended, no lower extremity swelling Assessment & Plan Assessment & Plan narrative: Polyp surveillance for colonoscopy
[2019-01-29] MEDS: MIDAZOLAM 5 MG/5 ML VIAL IV (08:49)
[2019-01-29] MEDS: fentaNYL 250 MCG/5 ML INJ IV (08:54)
[2019-01-29 09:24] VITALS: BP 143/82; PULSE 83; RESP 17; TEMP 36.4; O2SAT 97
--- NOTE | 2019-01-29 09:28 | P.OP.ENDO_ITS ---
Operative Date/Time/Diagnoses Date of procedure: 01/29/19 Procedure & Clinicians Study performed: Colonoscopy with biopsy Moderate conscious sedation was administered by the endoscopy nurse and supervised by the endoscopist. The following parameters were monitored: Oxygen saturation, heart rate, blood pressure, and response to care. Sedation: 4 mg midazolam and 125 micro g fentanyl. Indications: Personal history of colon polyps. Last colonoscopy was in 2018 - inadequate prep. Procedure Notes Procedure in detail: Prior to the procedure, history and physical was performed, and patient medications and allergies were reviewed. Preprocedure nursing history and assessment was reviewed. Patient identification and proposed procedure were verified by the physician and nurse in the procedure room. The physical status of the patient was reassessed after the procedure. After informed consent was obtained including risks, benefits, and alternatives, the scope was passed under direct vision. Throughout the procedure, the patient's blood pressure, pulse, and oxygen saturations were monitored continuously. The colonoscope was introduced through the anus and advanced to the cecum as identified by the appendiceal orifice and ileocecal valve. The patient tolerated the procedure well. Bowel prep was deemed adequate to detect polyps greater than 5 mm. Perianal and digital rectal examination were unremarkable. Retroflexion in the rectum revealed grade 1 internal hemorrhoids. Medium-sized diverticula noted throughout the entire colon In the sigmoid colon, a segmental area of diffusely edematous mucosa was encountered leading to reduce diameter of the lumen of the colon in this region. No discrete masses were identified. This made traversing the colon difficult requiring switching from the adult colonoscope to a pediatric colonoscope. Three 3mm sessile polyps removed from the transverse colon and sigmoid colon with a Jumbo biopsy forceps and retrieved Impression: Three 3 mm sessile polyps removed from the transverse and sigmoid colon Pancolonic diverticulosis Edematous sigmoid colon of unclear etiology. Cannot rule out extrinsic compression. Internal hemorrhoids Sedation minutes: 40 Complications: other (EBL minimal. No complications) Plan for aftercare: Follow-up pathology results Repeat colonoscopy at a date to be determined based on pathology results High fiber diet Resume home medications Follow-up in GI clinic as previously recommended Discharge home with escort
[2019-01-29 09:29] VITALS: BP 125/81; PULSE 83; RESP 17; O2SAT 95
[2019-01-29 09:34] VITALS: BP 137/81; PULSE 82; RESP 18; O2SAT 97
[2019-01-29 09:45] VITALS: TEMP 36.2; O2SAT 96
[2019-01-29 09:50] VITALS: BP 131/81; PULSE 80; RESP 16; TEMP 36.3; O2SAT 97
== END 2019-01-29 10:03 | disposition home or self-care (01) ==
PROVIDERS: PCP Family Medicine; Visit Provider Internal Medicine
PROC: 0DJD8ZZ Inspection of Lower Intestinal Tract, Via Natural or Artificial Opening Endoscopic (ICD-10-PCS; CPT 45378; principal; 2019-01-29 08:30)
DX: Z86.010 Personal history of colon polyps (principal); K57.30 Diverticulosis of large intestine without perforation or abscess without bleeding; K64.0 First degree hemorrhoids; D12.3 Benign neoplasm of transverse colon; D12.5 Benign neoplasm of sigmoid colon; G47.33 Obstructive sleep apnea (adult) (pediatric); N40.0 Benign prostatic hyperplasia without lower urinary tract symptoms; E66.9 Obesity, unspecified; Z68.36 Body mass index [BMI] 36.0-36.9, adult
CPT/HCPCS: 45380; 88305; J2250; J3010

== ENCOUNTER 2019-09-13 15:30 | Emergency (ER) | payer MEDICARE, OTHER, SELFPAY ==
[2019-09-13 15:39] VITALS: BP 130/75; PULSE 75; RESP 16; TEMP 36.4; O2SAT 96; BMI 37.4
--- NOTE | 2019-09-13 15:42 | ED_ITS ---
HPI - Chest Pain General Chief Complaint: Chest Pain Stated Complaint: chest is aching x3 days, getting worse Time Seen by Provider: 09/13/19 15:41 Source: patient Mode of arrival: Ambulatory Limitations: no limitations History of Present Illness HPI narrative: This is an 78-year-old male who comes to the emergency department with complaint of chest pain that started 3 days ago. He states initially started after sweeping with push broom kind of in his central chest but also little bit into his and left shoulder region. Patient states sort of comes and goes. He states he finally came in today because it had not resolved on its own. He states it's worse when he coughs occasionally has some sort of wheezy s ounds. He denies fevers. He denies any nasal congestion. Patient states he coughs occasionally but not all the time. He does have clear phlegm, no hemoptysis. He states it is painful to take a deep inspiration. He denies any nausea, no vomiting, no diarrhea. He states he has a known enlarged bladder any takes Flomax and finasteride for that. He denies any swelling in his lower extremities. He states walking any distance doesn't seem to exacerbate his symptoms. He states he is post take an aspirin daily but does not. He did take a couple aspirin yesterday but states that it didn't make much difference in his discomfort. He denies any past surgical history, states no cardiac stents. No tobacco, occasional alcohol, no illicit. He states his primary care is Dr. Lopez. Related Data Home Medications Medication Instructions Recorded Confirmed aspirin 81 mg PO QDAY #0 11/18/17 01/29/19 tamsulosin 0.4 mg PO QPM 01/29/19 01/29/19 Previous Rx's Medication Instructions Recorded prednisone 50 mg PO DAILY #5 tab 09/13/19 Allergies Allergy/AdvReac Type Severity Reaction Status Date / Time ciprofloxacin [From CIPRO] Allergy Intermediate Itchy Verified 01/29/19 07:50 indomethacin [From INDOCIN] Allergy Intermediate Itchy Verified 01/29/19 07:50 Review of Systems Review of Systems ROS Unobtainable: All systems reviewed & are unremarkable except as noted in HPI and below Patient History Medical History Cardiomegaly (Acute) Diverticulitis (Resolved) Enlarged prostate (Acute) Surgical History History of circumcision (Resolved) Social History household members: spouse Smoking Status: Never smoker Smoking Status: Never smoker alcohol intake frequency: 0-2 drinks per day Substance Use Type: does not use Exam Narrative Exam Narrative: GENERAL: Alert and oriented x three, obese, well-appearing male in mild distress. HEENT: Head normocephalic, atraumatic, EOMI, pupils reactive, face symmetric, moist mucous membranes NECK: Supple, full range of motion CARDIOVASCULAR: Regular rate and rhythm without murmurs, rubs or gallops. No reproducible chest pain. No rash or erythema to the anterior chest or back. RESPIRATORY: Breath sounds equal bilaterally, no wheezes rales or rhonchi. Tachypnea. Patient does have a while cough does appear to be uncomfortable when he tries to cough. ABDOMEN: Soft, nontender. Normoactive bowel sounds all 4 quadrants. No guarding or rebound, rigidity, no mass, no pulsatile mass or bruit. : No CVA tenderness EXTREMITIES: Normal range of motion, no clubbing or edema. Neurovascularly inta ct NEUROLOGICAL: Cranial nerves II through XII grossly intact. Moving all extremities SKIN: Warm, dry, no petechiae, no rashes or lesions. Initial Vital Signs Initial Vital Signs: Vital Signs Temperature 97.6 F 09/13/19 15:39 Pulse Rate 75 09/13/19 15:39 Respiratory Rate 16 09/13/19 15:39 Blood Pressure 130/75 09/13/19 15:39 Pulse Oximetry 96 09/13/19 15:39 Scores HEART Score Heart Score history: Slightly Suspicious Heart Score EKG: Non-Specific repolarization disturbance Heart Score Age: > or = 65 years old Heart Score risk factors: No known risk factors Heart Score troponin: < or = to normal limit Heart Score Total: 3 Course Orders Ordered: ED Orders 09/13/19 15:42 XR chest 1V Stat 09/13/19 15:45 Complete Blood Count AUTO DIFF Stat Comprehensive Metabolic Panel Stat Lipase Stat Partial Thromboplastin Time Stat Prothrombin Time INR Stat Troponin & CK Cardiac Panel Stat 09/13/19 15:52 B Type Natriuretic Peptide Stat 09/13/19 17:07 CT angio chest PE protocol Stat Discontinued Medications Albuterol (Ventolin) 2.5 mg INH NOW ONE Stop: 09/13/19 17:50 Last Admin: 09/13/19 17:51 Dose: 2.5 mg Documented by: LIZ Albuterol (Ventolin Hfa Prepack) 1 box MISC SEEINSTR ONE Stop: 09/13/19 18:25 Aspirin (Aspirin Chew) 324 mg PO NOW ONE Stop: 09/13/19 16:01 Last Admin: 09/13/19 16:06 Dose: 324 mg Documented by: ERMA Sodium Chloride (Normal Saline 0.9%) 1,000 mls @ 1,000 mls/hr IV BOLUS ONE Stop: 09/13/19 18:06 Last Admin: 09/13/19 17:18 Dose: 1,000 mls/hr Documented by: ERMA Morphine Sulfate (Morphine) 2 mg IV NOW ONE Stop: 09/13/19 17:08 Last Admin: 09/13/19 17:40 Dose: Not Given Documented by: ERMA Vital Signs Vital signs: Vital Signs - 8 hr 09/13/19 15:39 09/13/19 16:28 09/13/19 17:38 Temperature 97.6 F Pulse Rate 75 76 86 Respiratory Rate 16 16 22 Blood Pressure 130/75 Blood Pressure [Left Arm] 144/88 H 152/83 H Pulse Oximetry 96 97 97 09/13/19 17:52 Temperature Pulse Rate 81 Respiratory Rate 17 Blood Pressure Blood Pressure [Left Arm] Pulse Oximetry 95 MDM - Chest Pain Lab Data Attestation: I reviewed the patient's lab results. Result diagrams: 09/13/19 15:45 09/13/19 15:45 Labs: Lab Results 09/13/19 09/13/19 09/13/19 Range/Units 15:45 15:45 15:45 WBC 7.9 (4.5-11.0) X10^3/uL RBC 5.03 (4.5-5.9) X10^6/uL Hgb 14.2 (13.5-17.5) g/dL Hct 42.6 (41-53) % MCV 84.7 (80-100) fL MCH 28.2 (26-34) PG MCHC 33.3 (30-36) % RDW 14.7 (11.6-14.8) % Plt Count 203 (150-400) X10^3/uL Neut % (Auto) 63.5 (50-75) % Lymph % (Auto) 28.6 (25-40) % [place] % (Auto) 6.2 (3-14) % Eos % (Auto) 1.0 L (2-4) % Baso % (Auto) 0.7 (0-2) % Neut # (Auto) 5000 (9388-4163) /uL Lymph # (Auto) 2300 (0418-6588) /uL [place] # (Auto) 500 (0-900) /uL Eos # (Auto) 100 (0-450) /uL Baso # (Auto) 100 (0-100) /uL PT 13.3 H (10.1-12.7) SECONDS INR 1.1 (0.9-1.3) APTT 30 (26.4-36.2) SECONDS Sodium 140 (137-145) mmol/L Potassium 4.0 (3.4-5.1) mmol/L Chloride 106 (98-107) mmol/L Carbon Dioxide 25 (22-32) mmol/L BUN 19 (9-20) mg/dL Creatinine 1.20 (0.66-1.25) mg/dL Estimated GFR 58.3 L (>60) mL/min BUN/Creatinine Ratio 15.8 (6-22) Glucose 112 H (80-110) mg/dL Calcium 9.4 (8.4-10.2) mg/dL Total Bilirubin 0.5 (0.2-1.3) mg/dL AST 25 (17-59) IU/L ALT 19 (<50) IU/L Alkaline Phosphatase 82 (38-126) U/L Total Creatine Kinase 162 (55-170) U/L CK-MB (CK-2) 1.83 (<2.37) ng/mL CK-MB (CK-2) Rel Index 1.1 L (1.5-5.0) % Troponin I 0.018 (0.01-0.034) ng/mL B-Natriuretic Peptide (<100) Total Protein 7.7 (6.3-8.2) g/dL Albumin 4.2 (3.5-5.0) g/dL Globulin 3.5 (1.7-4.1) g/dL Albumin/Globulin Ratio 1.2 (1.0-2.8) Lipase 78 (23-300) U/L 09/13/19 Range/Units 15:52 WBC (4.5-11.0) X10^3/uL RBC (4.5-5.9) X10^6/uL Hgb (13.5-17.5) g/dL Hct (41-53) % MCV (80-100) fL MCH (26-34) PG MCHC (30-36) % RDW (11.6-14.8) % Plt Count (150-400) X10^3/uL Neut % (Auto) (50-75) % Lymph % (Auto) (25-40) % [place] % (Auto) (3-14) % Eos % (Auto) (2-4) % Baso % (Auto) (0-2) % Neut # (Auto) (6363-2100) /uL Lymph # (Auto) (4906-1426) /uL [place] # (Auto) (0-900) /uL Eos # (Auto) (0-450) /uL Baso # (Auto) (0-100) /uL PT (10.1-12.7) SECONDS INR (0.9-1.3) APTT (26.4-36.2) SECONDS Sodium (137-145) mmol/L Potassium (3.4-5.1) mmol/L Chloride (98-107) mmol/L Carbon Dioxide (22-32) mmol/L BUN (9-20) mg/dL Creatinine (0.66-1.25) mg/dL Estimated GFR (>60) mL/min BUN/Creatinine Ratio (6-22) Glucose (80-110) mg/dL Calcium (8.4-10.2) mg/dL Total Bilirubin (0.2-1.3) mg/dL AST (17-59) IU/L ALT (<50) IU/L Alkaline Phosphatase (38-126) U/L Total Creatine Kinase (55-170) U/L CK-MB (CK-2) (<2.37) ng/mL CK-MB (CK-2) Rel Index (1.5-5.0) % Troponin I (0.01-0.034) ng/mL B-Natriuretic Peptide < 100 (<100) Total Protein (6.3-8.2) g/dL Albumin (3.5-5.0) g/dL Globulin (1.7-4.1) g/dL Albumin/Globulin Ratio (1.0-2.8) Lipase (23-300) U/L Imaging Data Chest x-ray: Radiologist's impression: [address] [id number] XRay Report Signed Patient: Won Waller SR AMR#: [id number] : 9Acct:[id number] Age/Sex: 78 / MDate of Service: 09/13/19 Loc: ED Accession Number: [id number] Procedure: XR chest 1V Ordering Provider: Sadie Connolly D.O. PROCEDURE: XR CHEST 1V INDICATIONS: chest pain TECHNIQUE: One view of the chest was acquired. COMPARISON: [facility], CT, CHEST/ABD/PEL W&WO CONTRAST, 11/18/2017, 19:57. [facility], CR, CHEST 1 VIEW, 11/18/2017, 19:28. FINDINGS: Surgical changes and devices: None. Lungs and pleura: Mild interstitial prominence is seen. No pleural effusions or pneumothorax. Mediastinum: Mediastinal contours appear normal. Heart size is at the upper li mits normal. Bones and chest wall: No suspicious bony lesions. Age-appropriate bony degenerative changes are seen. Overlying soft tissues appear unremarkable. IMPRESSION: Interstitial prominence is seen throughout. The interstitial prominence is nonspecific, yet may be related to pulmonary edema. Dictated by: Deejay Pham M.D. on 09/13/2019 at 15:13 Approved by: Deejay Pham M.D. on 09/13/2019 at 15:14 CT scan - chest: Radiologist's impression: [address] [id number] [address] Scan Report Signed Patient: Won Waller SR AMR#: [id number] : 9Acct:[id number] Age/Sex: 78 / MDate of Service: 09/13/19 Loc: ED Accession Number: [id number] Procedure: CT angio chest PE protocol Ordering Provider: Sadie Connolly D.O. PROCEDURE: CT ANGIO CHEST PE PROTOCOL INDICATIONS: chest pain, pleuritic x 3 days. TECHNIQUE: After the administration of intravenous contrast, 2 mm thick sections acquired from the pulmonary apices to the posterior costophrenic angles. 3-dimensional maximum intensity projection (MIP) coronal and sagittal reformats were then acquired through the thorax. For radiation dose reduction, the following was used: automated exposure control, adjustment of mA and/or kV according to patient size. COMPARISON: [facility], CR, XR CHEST 1V, 09/13/2019, 15:58. [facility], CT, CT KIDNEY URETER BLADDER (KUB), 12/26/2018, 10:44. [facility], CT, CHEST/ABD/PEL W&WO CONTRAST, 11/18/2017, 19:57. FINDINGS: Image quality: Excellent. Pulmonary arteries: Pulmonary arteries are normal in size, and demonstrate no intraluminal filling defects to suggest central pulmonary embolism. Lungs and pleura: Groundglass opacity can be seen within the lungs, in a largely dependent distribution. Dependent atelectasis is also seen. No pleural effusions or pneumothorax. Central and peripheral airways are patent. Mediastinum: Heart size is normal, without pericardial effusion. No mediastina l or hilar adenopathy. Thoracic aorta is normal in caliber and enhancement. Esophagus is normal in caliber, without hiatal hernia. Bones and chest wall: No suspicious bony lesions. Age-appropriate bony degenerative changes are seen. Ribs and thoracic spine appear intact throughout. Thyroid gland demonstrates no significant CT abnormality. No axillary or supraclavicular adenopathy. A left shoulder lipoma is incidentally noted, as on series 4 image 27. Abdomen: Visualized upper abdominal solid organs appear normal in the early arterial phase of enhancement. IMPRESSION: Negative for pulmonary embolism. Dependent groundglass opacities are seen, which are likely related to mild pulmonary edema. Incidental note is made of: Left shoulder lipoma Dictated by: Deejay Pham M.D. on 09/13/2019 at 16:35 Approved by: Deejay Pham M.D. on 09/13/2019 at 16:38 ECG Data Attestation: I personally reviewed and interpreted this ECG as follows: Prior ECG tracings: available for review Interpretation: EKG shows sinus rhythm with first-degree AV block. Ventricular rate of 70 the P are interval of 222, QRS of 135 and QTC of 405. No ST elevation is appreciated. 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 [facility] Narrative Medical decision making narrative: Patient requested breathing treatment, on recheck and patient pain has resolved. Wheezing sensation feels better. Patient's EKG does not show acute findings. Troponins negative, BNP is negative with no other major lab abnormalities. Patient did have a CT PE protocol which is negative for pulmonary emboli. Patient has some ground-glass opacities which could possibly be pulmonary edema but patient symptoms are not really consistent nor his lab work. Patient had a lot of relief with the breathing treatment and discussed he may have little bit of bronchitis. Plan for short course of steroids and albuterol as needed. Patient is to follow-up in the short term with his primary care for recheck. Discharge Plan Departure Patient Disposition: Home Clinical Impression: Bronchitis, Atypical chest pain Instructions: DI for Acute Bronchitis Activity Restrictions/Additional Instructions: Follow-up with your primary care physician in the next week for recheck. Continue with albuterol 1-2 puffs every 4 hours as needed wheezing. Use spacer. Continue with steroids once daily. Return to the emergency department for fevers greater 100.4 F, new or changing chest pain, shortness of breath, lightheadedness, passing out, persistent vomiting, swelling in your lower extremities or other new or concerning symptoms. Prescriptions: New prednisone 50 mg tablet 50 mg PO DAILY Qty: 5 RF: 0 No Action aspirin 81 MG tablet,delayed release (DR/EC) 81 mg PO QDAY Qty: 0 RF: 0 tamsulosin 0.4 mg Capsule 0.4 mg PO QPM RF: 0 Referrals: Destin Lopez MD [Primary Care Provider] -
[2019-09-13 15:57] LABS: Add Manual Diff / Slide Review NO; Basophils Absolute Auto 100 /uL (0-100); Basophils Percent Auto 0.7 % (0-2); Eosinophils Absolute Auto 100 /uL (0-450); Hematocrit 42.6 % (41-53); Hemoglobin 14.2 g/dL (13.5-17.5); Lymphocytes Absolute Auto 2300 /uL (1100-4500); Lymphocytes Percent Auto 28.6 % (25-40); Mean Corpuscular HGB Conc 33.3 % (30-36); Mean Corpuscular Hemoglobin 28.2 PG (26-34); Mean Corpuscular Volume 84.7 fL (80-100); Monocytes Absolute Auto 500 /uL (0-900); Monocytes Percent Auto 6.2 % (3-14); Neutrophils Absolute Auto 5000 /uL (1500-7000); Neutrophils Percent Auto 63.5 % (50-75); Platelet Count 203 X10^3/uL (150-400); Red Blood Cell Count 5.03 X10^6/uL (4.5-5.9); Red Cell Distribution Width 14.7 % (11.6-14.8); White Blood Cell Count 7.9 X10^3/uL (4.5-11.0)
[2019-09-13] MEDS: ASPIRIN 81 MG CHEW TAB 324 MG PO (16:06)
[2019-09-13 16:12] LABS: INR 1.1 (0.9-1.3); Prothrombin Time 13.3 SECONDS (10.1-12.7)
[2019-09-13 16:14] LABS: PTT Partial Thromboplastin Tim 30 SECONDS (26.4-36.2)
[2019-09-13 16:16] LABS: Alanine Aminotransferase 19 IU/L (<50); Albumin 4.2 g/dL (3.5-5.0); Albumin Globulin Ratio 1.2 (1.0-2.8); Alkaline Phosphatase 82 U/L (38-126); Aspartate Aminotransferase 25 IU/L (17-59); BUN Creatinine Ratio 15.8 (6-22); Bilirubin Total 0.5 mg/dL (0.2-1.3); Blood Urea Nitrogen 19 mg/dL (9-20); Calcium 9.4 mg/dL (8.4-10.2); Carbon Dioxide 25 mmol/L (22-32); Chloride 106 mmol/L (98-107); Creatine Kinase 162 U/L (55-170); Estimated Glomerular Filt Rate 58.3 mL/min (>60); Globulin 3.5 g/dL (1.7-4.1); Glucose 112 mg/dL (80-110); HEMOLYSIS < 15 (0-50); Lipase 78 U/L (23-300); Sodium 140 mmol/L (137-145); Total Protein 7.7 g/dL (6.3-8.2)
[2019-09-13 16:27] LABS: Troponin I 0.018 ng/mL (0.01-0.034)
[2019-09-13 16:28] VITALS: BP 144/88; PULSE 76; RESP 16; O2SAT 97
[2019-09-13 16:32] LABS: CKMB % Relative Index 1.1 % (1.5-5.0); Creatine Kinase MB 1.83 ng/mL (<2.37)
[2019-09-13 16:50] LABS: B Type Natriuretic Peptide < 100 (<100)
--- NOTE | 2019-09-13 17:07 | DI.CT.S_ITS ---
PROCEDURE: CT ANGIO CHEST PE PROTOCOL INDICATIONS: chest pain, pleuritic x 3 days. TECHNIQUE: After the administration of intravenous contrast, 2 mm thick sections acquired from the pulmonary apices to the posterior costophrenic angles. 3-dimensional maximum intensity projection (MIP) coronal and sagittal reformats were then acquired through the thorax. For radiation dose reduction, the following was used: automated exposure control, adjustment of mA and/or kV according to patient size. COMPARISON: [facility], CR, XR CHEST 1V, 09/13/2019, 15:58. [facility], CT, CT KIDNEY URETER BLADDER (KUB), 12/26/2018, 10:44. [facility], CT, CHEST/ABD/PEL W&WO CONTRAST, 11/18/2017, 19:57. FINDINGS: Image quality: Excellent. Pulmonary arteries: Pulmonary arteries are normal in size, and demonstrate no intraluminal filling defects to suggest central pulmonary embolism. Lungs and pleura: Groundglass opacity can be seen within the lungs, in a largely dependent distribution. Dependent atelectasis is also seen. No pleural effusions or pneumothorax. Central and peripheral airways are patent. Mediastinum: Heart size is normal, without pericardial effusion. No mediastinal or hilar adenopathy. Thoracic aorta is normal in caliber and enhancement. Esophagus is normal in caliber, without hiatal hernia. Bones and chest wall: No suspicious bony lesions. Age-appropriate bony degenerative changes are seen. Ribs and thoracic spine appear intact throughout. Thyroid gland demonstrates no significant CT abnormality. No axillary or supraclavicular adenopathy. A left shoulder lipoma is incidentally noted, as on series 4 image 27. Abdomen: Visualized upper abdominal solid organs appear normal in the early arterial phase of enhancement. IMPRESSION: Negative for pulmonary embolism. Dependent groundglass opacities are seen, which are likely related to mild pulmonary edema. Incidental note is made of: Left shoulder lipoma Dictated by: Deejay Pham M.D. on 09/13/2019 at 16:35 Approved by: Deejay Pham M.D. on 09/13/2019 at 16:38
[2019-09-13] MEDS: SODIUM CHLORIDE 0.9% 1,000 ML 1000 ML IV (17:18)
[2019-09-13 17:38] VITALS: BP 152/83; PULSE 86; RESP 22; O2SAT 97
[2019-09-13] MEDS: ALBUTEROL 2.5 MG/3 ML NEB (ADULT) INH (17:51)
[2019-09-13 17:52] VITALS: PULSE 81; RESP 17; O2SAT 95
[2019-09-13 18:35] VITALS: BP 143/91; PULSE 80; RESP 22; O2SAT 95
--- NOTE | 2019-09-13 18:53 | PC.NURSE ---
Respiratory therapy dispensed inhaler w/ spacer.
[2019-09-13] MEDS: ALBUTEROL HFA PREPACK 1 BOX MISC (18:54)
== END 2019-09-13 18:55 | disposition home or self-care (01) ==
PROVIDERS: Emergency Provider Emergency Medicine; PCP Family Medicine
DX: J20.9 Acute bronchitis, unspecified (principal); R07.89 Other chest pain
CPT/HCPCS: 36415; 71045; 71275; 80053; 82550; 82553; 83690; 83880; 84484; 85025; 85610; 85730; 93005; 94640; 96360; 99285; J2270; J7613; Q9967

== ENCOUNTER 2020-05-05 11:05 | Inpatient (IN) | payer MEDICARE, OTHER, SELFPAY ==
[2020-05-05] VITALS (12 sets, daily range): BP systolic 117–153; BP diastolic 61–80; PULSE 95–104; RESP 18; TEMP 37.1–37.4; O2SAT 91–100; BMI 38.6
--- NOTE | 2020-05-05 11:36 | ED_ITS ---
HPI - Abdominal Pain General Chief Complaint: Abdominal Pain Stated Complaint: bloated,lower abdominal pain Time Seen by Provider: 05/05/20 11:16 Source: patient and family Mode of arrival: Ambulatory History of Present Illness HPI narrative: Patient here with . Complains of abdominal distention since last week. Two days ago started with dysuria and urinary urgency. He states does not feel like his kidney stone pain in the past. He may resemble his diverticulitis flare-up in the past. Has been admitted in the past for divertic ulitis here before. No nausea or vomiting. No bloody or black stools or diarrhea. No testicular pain. Patient denies any pain at this time Related Data Home Medications Medication Instructions Recorded Confirmed aspirin 81 mg PO QDAY #0 11/18/17 05/05/20 Previous Rx's Medication Instructions Recorded amoxicillin-pot clavulanate 1 tab PO BID #20 tab 05/07/20 [Augmentin] tamsulosin 0.4 mg PO QPM #30 cap 05/07/20 Allergies Allergy/AdvReac Type Severity Reaction Status Date / Time ciprofloxacin [From CIPRO] Allergy Intermediate Itchy Verified 01/29/19 07:50 indomethacin [From INDOCIN] Allergy Intermediate Itchy Verified 01/29/19 07:50 Review of Systems Review of Systems Narrative: GENERAL: Denies chills, fatigue, malaise, fever, sweats. HEENT: Denies sinus pain, ear pain, sore throat, difficulty swallowing, dizziness. RESPIRATORY: Denies dyspnea, cough, wheezing, hemoptysis, sputum. CARDIOVASCULAR: Denies chest pain, palpitations, orthopnea, edema, GASTROINTESTINAL: Denies nausea, vomiting, complains abdominal pain, denies diarrhea, constipation, melena. : Complains of dysuria, frequency, denies incontinence, denies hematuria, urinary retention. MUSCULOSKELETAL: denies weakness, joint pain, or bony pain SKIN: Denies rash, skin lesions, or other NEUROLOGIC: Denies weakness, headache, numbness, change in speech, confusion, seizures, incoordination. PSYCHIATRIC: No concerning psychosocial issues. ROS Unobtainable: All systems reviewed & are unremarkable except as noted in HPI and below Patient History Medical History Cardiomegaly (Acute) Diverticulitis (Resolved) Enlarged prostate (Acute) Gout (Acute) Surgical History History of circumcision (Resolved) Family History Grandmother Kidney failure Father Poisoning and toxic reactions caused by animals and plants Other Family history non-contributory Social History household members: spouse Smoking Status: Never smoker Smoking Status: Never smoker alcohol intake frequency: 0-2 drinks per day Substance Use Type: does not use Exam Narrative Exam Narrative: GENERAL: patient appears stated age. Well-nourished, well- developed patient, in no distress, not toxic HEAD: Atraumatic. Normocephalic. EYES: Pupils equal round and reactive. Extraocular motions intact. No scleral icterus. No injection or drainage. ENT: Nose without bleeding, purulent drainage. Throat without erythema, tonsillar hypertrophy or exudate. Airway patent. NECK: Trachea midline. Non tender CARDIOVASCULAR: Regular rate and rhythm without murmurs, gallops, or rubs. RESPIRATORY: Clear to auscultation. Breath sounds equal bilaterally. No wheezes, rales, or rhonchi. GASTROINTESTINAL: Abdomen soft, mild tenderness left lower quadrant as well as suprapubic. Normal bowel sounds, no peritoneal signs. EXTREMITIES: No edema or joint tenderness. BACK: Nontender without deformity or crepitance. No flank tenderness. NEURO: AOx3. SKIN: No rash or erythema of visible areas PSYCH: Not anxious, is cooperative Initial Vital Signs Initial Vital Signs: Vital Signs Temperature 99.3 F 05/05/20 11:18 Pulse Rate 103 H 05/05/20 11:18 Respiratory Rate 18 05/05/20 11:18 Blood Pressure 153/80 H 05/05/20 11:18 Pulse Oximetry 100 05/05/20 11:18 Course Course Course Narrative: New findings on CT scan with abdominal pain. Reviewed with surgeon and recommends observation and further workup Decision to Admit Date: 05/05/20 Decision to Admit time: 14:49 Orders Ordered: Discontinued Medications Acetaminophen (Tylenol) 650 mg PO Q6HR PRN PRN Reason: Fever/Mild Pain (1-3) Last Admin: 05/07/20 13:47 Dose: 650 mg Documented by: YUMIKO Aspirin (Aspirin Ec) 81 mg PO DAILY [facility] Last Admin: 05/07/20 10:23 Dose: Not Given Documented by: Admin: 05/06/20 10:15 Dose: 81 mg Documented by: LENA Docusate Sodium (Colace) 100 mg PO BID [facility] Last Admin: 05/07/20 10:23 Dose: Not Given Documented by: Admin: 05/06/20 20:24 Dose: 100 mg Documented by: Admin: 05/06/20 10:15 Dose: 100 mg Documented by: LENA Enoxaparin Sodium (Lovenox) 40 mg SUBCUT DAILY [facility] Last Admin: 05/07/20 10:23 Dose: 40 mg Documented by: Admin: 05/06/20 10:16 Dose: 40 mg Documented by: LENA Hydromorphone HCl (Dilaudid) 0.5 mg IV Q6HR PRN PRN Reason: Pain, Moderate (4-6) Last Admin: 05/07/20 10:22 Dose: 0.5 mg Documented by: Admin: 05/07/20 03:26 Dose: 0.5 mg Documented by: Admin: 05/06/20 04:57 Dose: 0.5 mg Documented by: Admin: 05/05/20 20:04 Dose: 0.5 mg Documented by: EUSEBIO Hydromorphone HCl (Dilaudid) 0.5 mg IV Q6HR PRN PRN Reason: Pain, Moderate (4-6) Sodium Chloride (Normal Saline 0.9%) 1,000 mls @ 1,000 mls/hr IV BOLUS ONE Stop: 05/05/20 12:30 Last Infusion: 05/05/20 15:15 Dose: 0 mls/hr Documented by: Admin: 05/05/20 12:15 Dose: 1,000 mls/hr Documented by: PRICILA Piperacillin/Tazobactam/Dextrose (Zosyn) 3.375 gm in 50 mls @ 100 mls/hr IV NOW ONE Stop: 05/05/20 15:36 Last Infusion: 05/05/20 15:50 Dose: 0 mls/hr Documented by: Admin: 05/05/20 15:17 Dose: 100 mls/hr Documented by: PRICILA Metronidazole (Flagyl) 500 mg in 100 mls @ 100 mls/hr IV NOW ONE Stop: 05/05/20 16:06 Last Infusion: 05/05/20 16:35 Dose: 100 mls/hr Documented by: Admin: 05/05/20 15:49 Dose: 100 mls/hr Documented by: PRICILA Sodium Chloride (Normal Saline 0.45%) 1,000 mls @ 100 mls/hr IV CONT [facility] Last Infusion: 05/07/20 13:46 Dose: 0 mls/hr Documented by: Admin: 05/07/20 03:31 Dose: 100 mls/hr Documented by: Infusion: 05/07/20 03:31 Dose: 100 mls/hr Documented by: Admin: 05/06/20 17:42 Dose: 100 mls/hr Documented by: Infusion: 05/06/20 16:31 Dose: 100 mls/hr Documented by: Admin: 05/06/20 06:31 Dose: 100 mls/hr Documented by: Infusion: 05/06/20 05:17 Dose: 100 mls/hr Documented by: Admin: 05/05/20 19:17 Dose: 100 mls/hr Documented by: EUSEBIO Piperacillin/Tazobactam/Dextrose (Zosyn) 3.375 gm in 50 mls @ 100 mls/hr IV Q6H [facility] Last Admin: 05/07/20 15:14 Dose: Not Given Documented by: Infusion: 05/07/20 13:33 Dose: 0 mls/hr Documented by: Admin: 05/07/20 10:23 Dose: 100 mls/hr Documented by: Infusion: 05/07/20 04:03 Dose: 0 mls/hr Documented by: Admin: 05/07/20 03:30 Dose: 100 mls/hr Documented by: Infusion: 05/06/20 23:56 Dose: 0 mls/hr Documented by: Admin: 05/06/20 20:24 Dose: 100 mls/hr Documented by: Infusion: 05/06/20 15:52 Dose: 100 mls/hr Documented by: Admin: 05/06/20 15:22 Dose: 100 mls/hr Documented by: Infusion: 05/06/20 09:32 Dose: 0 mls/hr Documented by: Admin: 05/06/20 08:44 Dose: 100 mls/hr Documented by: Infusion: 05/06/20 04:20 Dose: 0 mls/hr Documented by: Admin: 05/06/20 03:07 Dose: 100 mls/hr Documented by: Infusion: 05/05/20 20:39 Dose: 0 mls/hr Documented by: Admin: 05/05/20 20:09 Dose: 100 mls/hr Documented by: EUSEBIO Naloxone HCl (Narcan) 0.2 mg IV Q2MIN PRN PRN Reason: Opiate Reversal Ondansetron HCl (Zofran) 4 mg IV Q8HR PRN PRN Reason: Nausea And Vomiting Oxycodone HCl (Percolone) 5 mg PO Q6HR PRN PRN Reason: Pain, Moderate (4-6) Last Admin: 05/07/20 13:46 Dose: 5 mg Documented by: Admin: 05/06/20 12:38 Dose: 5 mg Documented by: LENA Tamsulosin HCl (Flomax) 0.4 mg PO DAILY [facility] Last Admin: 05/07/20 13:46 Dose: 0.4 mg Documented by: Admin: 05/06/20 10:16 Dose: 0.4 mg Documented by: LENA Reevaluation(s) Reevaluation #1: Patient resting comfortably at this time. No distress. Spoke with them results and he agrees with admission hospital. at bedside Time: 14:50 Consultations Consultation #1: Spoke with general surgeon dr macedo.. Review colonoscopy from last year with CT scan today. Laboratory studies reviewed. Agrees patient be observed. Would like to do barium enema as well as colonoscopy during stay here Time: 14:50 Consultation #2: Spoke with hospitalist, Dr. dsouza, will admit Time: 14:50 Vital Signs Vital signs: Vital Signs - 8 hr 05/05/20 11:18 05/05/20 11:37 05/05/20 12:07 Temperature 99.3 F Pulse Rate 103 H 95 H 98 H Respiratory Rate 18 Blood Pressure 153/80 H Pulse Oximetry 100 95 05/05/20 12:30 05/05/20 13:00 05/05/20 13:41 Temperature Pulse Rate 97 H 98 H 104 H Respiratory Rate Blood Pressure 147/74 H Pulse Oximetry 94 95 93 MDM - Abdominal Pain Differential Diagnosis Differential diagnosis: Likely abdominal pain, acute appendicitis, calculus of kidney, diverticulitis, gastroenteritis and small bowel obstruction Lab Data Attestation: I reviewed the patient's lab results. Result diagrams: 05/06/20 04:55 05/06/20 04:55 Labs: Lab Results 05/05/20 05/05/20 05/05/20 Range/Units 12:10 12:10 12:28 WBC 13.0 H (4.5-11.0) X10^3/uL RBC 4.71 (4.5-5.9) X10^6/uL Hgb 13.4 L (13.5-17.5) g/dL Hct 40.1 L (41-53) % MCV 85.1 (80-100) fL MCH 28.4 (26-34) PG MCHC 33.4 (30-36) % RDW 14.5 (11.6-14.8) % Plt Count 146 L (150-400) X10^3/uL Neut % (Auto) 85.1 H (50-75) % Lymph % (Auto) 10.6 L (25-40) % [place] % (Auto) 3.8 (3-14) % Eos % (Auto) 0.3 L (2-4) % Baso % (Auto) 0.2 (0-2) % Neut # (Auto) 66807 H (3710-7446) /uL Lymph # (Auto) 1400 (0933-2511) /uL [place] # (Auto) 500 (0-900) /uL Eos # (Auto) 0 (0-450) /uL Baso # (Auto) 0 (0-100) /uL Sodium 137 (137-145) mmol/L Potassium 4.0 (3.4-5.1) mmol/L Chloride 104 (98-107) mmol/L Carbon Dioxide 25 (22-32) mmol/L BUN 17 (9-20) mg/dL Creatinine 1.06 (0.66-1.25) mg/dL Estimated GFR > 60.0 (>60) mL/min BUN/Creatinine Ratio 16.0 (6-22) Glucose 102 (80-110) mg/dL Calcium 9.4 (8.4-10.2) mg/dL Total Bilirubin 0.9 (0.2-1.3) mg/dL AST 31 (17-59) IU/L ALT 24 (<50) IU/L Alkaline Phosphatase 85 (38-126) U/L Total Protein 8.0 (6.3-8.2) g/dL Albumin 3.9 (3.5-5.0) g/dL Globulin 4.1 (1.7-4.1) g/dL Albumin/Globulin Ratio 1.0 (1.0-2.8) Lipase 139 (23-300) U/L Nasal Screen MRSA (PCR) Negative for mrsa (Negative) [place] [address] Endoscopy Note Patient: Won Waller SR [facility]#: [id number] : 9Acct:[id number] Age/Sex: 78 / M Date of Service: 01/29/19 Provider: Tone Contreras MD Operative Date/Time/Diagnoses Date of procedure: 01/29/19 Procedure & Clinicians Study performed: Colonoscopy with biopsy Moderate conscious sedation was administered by the endoscopy nurse and supervised by the endoscopist. The following parameters were monitored: Oxygen saturation, heart rate, blood pressure, and response to care. Sedation: 4 mg midazolam and 125 micro g fentanyl. Indications: Personal history of colon polyps. Last colonoscopy was in 2018 - inadequate prep. Procedure Notes Procedure in detail: Prior to the procedure, history and physical was performed, and patient medications and allergies were reviewed. Preprocedure nursing history and assessment was reviewed. Patient identification and proposed procedure were verified by the physician and nurse in the procedure room. The physical status of the patient was reassessed after the procedure. After informed consent was obtained including risks, benefits, and alternatives, the scope was passed under direct vision. Throughout the procedure, the patient's blood pressure, pulse, and oxygen saturations were monitored continuously. The colonoscope was introduced through the anus and advanced to the cecum as identified by the appendiceal orifice and ileocecal valve. The patient tolerated the procedure well. Bowel prep was deemed adequate to detect polyps greater than 5 mm. Perianal and digital rectal examination were unremarkable. Retroflexion in the rectum revealed grade 1 internal hemorrhoids. Medium-sized diverticula noted throughout the entire colon In the sigmoid colon, a segmental area of diffusely edematous mucosa was encountered leading to reduce diameter of the lumen of the colon in this region. No discrete masses were identified. This made traversing the colon difficult requiring switching from the adult colonoscope to a pediatric colonoscope. Three 3mm sessile polyps removed from the transverse colon and sigmoid colon with a Jumbo biopsy forceps and retrieved Impression: Three 3 mm sessile polyps removed from the transverse and sigmoid colon Pancolonic diverticulosis Edematous sigmoid colon of unclear etiology. Cannot rule out extrinsic compression. Internal hemorrhoids Sedation minutes: 40 Complications: other (EBL minimal. No complications) Plan for aftercare: Follow-up pathology results Repeat colonoscopy at a date to be determined based on pathology results High fiber diet Resume home medications Follow-up in GI clinic as previously recommended Discharge home with escort Signed By:<Electronically signed by Tone Contreras MD>01/29/19 0928 Point of care testing: Urine Dip Bedside Urine Glucose Negative Bedside Urine Bilirubin - Negative Bedside Urine Ketone - Negative Urine Specific [place] 1.010 Bedside Urine Occult Blood + Bedside Urine pH 7.5 Bedside Urine Protein + 30 Bedside Urine Urobilinogen +/- 1mg Bedside Urine Nitrite - Negative Bedside Urine Leukocytes + [address] scan - abdomen/pelvis: Radiologist's Impression: [address] [address] [address] Scan Report Signed Patient: Won Waller SR [employer] [facility]#: [id number] : 1941Acct:[id number] Age/Sex: 79 / MDate of Service: 05/05/20 Loc: ED Accession Number: [id number] Procedure: CT abdomen pelvis w con Ordering Provider: Jerel Tidwell MD PROCEDURE: CT ABDOMEN PELVIS W CON INDICATIONS: IV contrast only/lower abdominal pain/left lower quadrant pa TECHNIQUE: After the administration of intravenous contrast, 5 mm thick sections acquired from the diaphragm to the symphysis. 5 mm coronal and sagittal reformats were acquired. For radiation dose reduction, the following was used: automated exposure control, adjustment of mA and/or kV according to patient size. COMPARISON: Outside Film, CT, CT ABDOMEN PELVIS WITH CONTRAST, 11/20/2019, 22:06. FINDINGS: Image quality: Excellent. ABDOMEN: Lung bases: Lung bases are clear. Heart size is normal. Solid organs: Liver is normal in size . Ill-defined enhancing focus within the lateral segment left hepatic lobe measuring 16 mm is not significantly changed. Diffusely decreased hepatic density is present, as before. Gallbladder is within normal limits . Biliary system is non dilated. Pancreas enhances normally. Spleen is normal in size and enhancement. No adrenal nodules. Kidneys demonstrate normal size and enhancement, without hydronephrosis. Peritoneum and bowel: Examination is limited by lack of oral contrast. There is a moderate hiatal hernia, new since the prior examination. Stomach is decompressed. Small bowel is decompressed. Colon is nondistended. Appendix is within normal ma its. Diverticulosis of the descending and sigmoid colon. There is thickening of the descending colon. Fistule between the sigmoid and descending colon within the left hemiabdomen are present, as before, with surrounding scarring. There is an increased 25 mm diameter spiculated rounded density within the left hemiabdomen amongst the fistulae. There is thickening of the sigmoid colon, as well as moderate fat stranding within the perirectal mesocolon. No free fluid or air. Nodes and vessels: No retroperitoneal or mesenteric adenopathy by size criteria. Aorta and inferior vena cava are normal in size. Miscellaneous: No ventral hernias. PELVIS: Genitourinary: Bladder wall thickness is normal. Prostate is enlarged. Miscellaneous: No inguinal hernias or adenopathy. Bones: No suspicious bony lesions. No vertebral body compression fractures. IMPRESSION: 1. Limited evaluation of the bowel secondary to lack of oral contrast. 2. 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 3. Thickening of the descending colon, consistent with ischemia versus infection versus inflammation. Underlying neoplasm may also be present. 4. Increased spiculated density within the left colonic mesentery, which could indicate scarring, or underlying neoplasm. 5. Proctitis. 6. Normal appendix. 7. Hiatal hernia. 8. No change in left hepatic lobe hemangioma. 9. Prostate enlargement. 10. Hepatic steatosis. Dictated by: Jeffry Hill M.D. on 05/05/2020 at 13:43 Approved by: Jeffry Hill M.D. on 05/05/2020 at 13:50 MDM Narrative Medical decision making narrative: New findings on CT scan. Appropriate for admission for neoplasm evaluation Discharge Plan Departure Patient Disposition: Admitted as Observation Clinical Impression: Abdominal pain Qualifiers: Abdominal location: lower abdomen, unspecified Qualified Code(s): R10.30 - Lower abdominal pain, unspecified Discharge Date/Time: 05/05/20 16:35 Referrals: Destin Lopez MD [Primary Care Provider] - Dahlia Macedo MD [Physician] - 2 Weeks Admit Date/Time: 05/05/20 15:28 Admit Provider: Renee Dsouza
[2020-05-05] MEDS: SODIUM CHLORIDE 0.9% 1,000 ML 1000 ML IV (12:15)
--- NOTE | 2020-05-05 12:23 | PC.NURSE ---
Addendum entered by Tristan Curry R.N. 05/05/20 12:24: Tech resulted 21 on bladder scan. Original Note: patient attempted to give urine sample. Unable to provide sample. Bladder scanned, Tech resulted 0 on bladder scan.
[2020-05-05 12:28] LABS: Add Manual Diff / Slide Review NO; Basophils Absolute Auto 0 /uL (0-100); Basophils Percent Auto 0.2 % (0-2); Eosinophils Absolute Auto 0 /uL (0-450); Eosinophils Percent Auto 0.3 % (2-4); Hematocrit 40.1 % (41-53); Hemoglobin 13.4 g/dL (13.5-17.5); Lymphocytes Absolute Auto 1400 /uL (1100-4500); Lymphocytes Percent Auto 10.6 % (25-40); Mean Corpuscular HGB Conc 33.4 % (30-36); Mean Corpuscular Hemoglobin 28.4 PG (26-34); Mean Corpuscular Volume 85.1 fL (80-100); Monocytes Absolute Auto 500 /uL (0-900); Monocytes Percent Auto 3.8 % (3-14); Neutrophils Absolute Auto 11100 /uL (1500-7000); Neutrophils Percent Auto 85.1 % (50-75); Platelet Count 146 X10^3/uL (150-400); Red Blood Cell Count 4.71 X10^6/uL (4.5-5.9); Red Cell Distribution Width 14.5 % (11.6-14.8)
[2020-05-05 12:34] LABS: Alanine Aminotransferase 24 IU/L (<50); Albumin 3.9 g/dL (3.5-5.0); Alkaline Phosphatase 85 U/L (38-126); Aspartate Aminotransferase 31 IU/L (17-59); Bilirubin Total 0.9 mg/dL (0.2-1.3); Blood Urea Nitrogen 17 mg/dL (9-20); Calcium 9.4 mg/dL (8.4-10.2); Carbon Dioxide 25 mmol/L (22-32); Chloride 104 mmol/L (98-107); Estimated Glomerular Filt Rate > 60.0 mL/min (>60); Globulin 4.1 g/dL (1.7-4.1); Glucose 102 mg/dL (80-110); HEMOLYSIS 25 (0-50); Lipase 139 U/L (23-300); Sodium 137 mmol/L (137-145)
--- NOTE | 2020-05-05 13:23 | DI.CT.S_ITS ---
PROCEDURE: CT ABDOMEN PELVIS W CON INDICATIONS: IV contrast only/lower abdominal pain/left lower quadrant pa TECHNIQUE: After the administration of intravenous contrast, 5 mm thick sections acquired from the diaphragm to the symphysis. 5 mm coronal and sagittal reformats were acquired. For radiation dose reduction, the following was used: automated exposure control, adjustment of mA and/or kV according to patient size. COMPARISON: Outside Film, CT, CT ABDOMEN PELVIS WITH CONTRAST, 11/20/2019, 22:06. FINDINGS: Image quality: Excellent. ABDOMEN: Lung bases: Lung bases are clear. Heart size is normal. Solid organs: Liver is normal in size . Ill-defined enhancing focus within the lateral segment left hepatic lobe measuring 16 mm is not significantly changed. Diffusely decreased hepatic density is present, as before. Gallbladder is within normal limits . Biliary system is non dilated. Pancreas enhances normally. Spleen is normal in size and enhancement. No adrenal nodules. Kidneys demonstrate normal size and enhancement, without hydronephrosis. Peritoneum and bowel: Examination is limited by lack of oral contrast. There is a moderate hiatal hernia, new since the prior examination. Stomach is decompressed. Small bowel is decompressed. Colon is nondistended. Appendix is within normal limits. Diverticulosis of the descending and sigmoid colon. There is thickening of the descending colon. Fistule between the sigmoid and descending colon within the left hemiabdomen are present, as before, with surrounding scarring. There is an increased 25 mm diameter spiculated rounded density within the left hemiabdomen amongst the fistulae. There is thickening of the sigmoid colon, as well as moderate fat stranding within the perirectal mesocolon. No free fluid or air. Nodes and vessels: No retroperitoneal or mesenteric adenopathy by size criteria. Aorta and inferior vena cava are normal in size. Miscellaneous: No ventral hernias. PELVIS: Genitourinary: Bladder wall thickness is normal. Prostate is enlarged. Miscellaneous: No inguinal hernias or adenopathy. Bones: No suspicious bony lesions. No vertebral body compression fractures. IMPRESSION: 1. Limited evaluation of the bowel secondary to lack of oral contrast. 2. 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 3. Thickening of the descending colon, consistent with ischemia versus infection versus inflammation. Underlying neoplasm may also be present. 4. Increased spiculated density within the left colonic mesentery, which could indicate scarring, or underlying neoplasm. 5. Proctitis. 6. Normal appendix. 7. Hiatal hernia. 8. No change in left hepatic lobe hemangioma. 9. Prostate enlargement. 10. Hepatic steatosis. Dictated by: Jeffry Hill M.D. on 05/05/2020 at 13:43 Approved by: Jeffry Hill M.D. on 05/05/2020 at 13:50
[2020-05-05] MEDS: PIPERACILLIN-TAZO 3.375 GM/50 ML FROZ.PIGGY IV ×2 (15:17→20:09)
[2020-05-05] MEDS: metroNIDAZOLE 500 MG/100 ML PIGGYBACK 100 MG IV (15:49)
[2020-05-05 16:41] LABS: COVID19 -Nasal RAPID Negative (Negative)
--- NOTE | 2020-05-05 18:52 | P.CONS_ITS ---
History of Present Illness Consult details Date Patient Seen: 05/05/20 Time Patient Seen: 18:52 Chief complaint: bloated,lower abdominal pain Reason for consult: abdominal pain, diverticulitis Requesting provider: Renee Dsouza Narrative: This is an 79-year-old man with h/o gout, BPH, and diverticulitis who came into the ER today with one day of acute abdominal pain, bloating, pyuria, and fever. He was scheduled to have abdominal surgery for his diverticulitis at [facility] a few months ago, but due to COVID his elective procedure was canceled. The patient had a colonoscopy in [address] Willingham that confirmed diverticulosis and marked stenosis of the sigmoid colon. In the emergency room he underwent CT scan of the abdomen and pelvis. 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 His WBC was 13, PMN's 85%. Metabolic panel was essentially normal. UA was apparently not sent. The patient was admitted to the medicine service for IV antibiotics and pain control. ROS: He reports that he has had night sweats. He denies any nausea vomiting or diarrhea. He has had no hematemesis melena or bright red blood per rectum. The patient has had no shortness of breath or chest pain. He denies any weight loss or weight gain. Thirteen system review is otherwise negative other than as mentioned below and in HPI. PE: GENERAL: Alert, comfortable. Appears younger than stated age. Answers questions promptly and appropriately. Vital signs noted. HENT: Normocephalic, atraumatic. Hearing intact. Oral mucosa is pink and moist. EYES: Conjunctiva pink, sclera white, no periorbital swelling. CARDIOVASCULAR: Regular rate. No pedal edema. RESPIRATORY: Non-tachypneic, breathing comfortably on room air. GASTROINTESTINAL: Abdomen soft, rounded, moderately distended, focal TTP in LLQ, no generalized peritonitis GENITALURINARY: No flank tenderness. MUSCULOSKELETAL: Equal tone and mass bilaterally. SKIN: Warm, dry, soft, appropriate color for ethnicity. No other lesions, rashes, or wounds. NEURO: Alert and Oriented X 3. No gross sensory deficits, or cognitive issues. PSYCH: Appropriate mood and affect, normal intellect Meds Home Medications and Allergies Home Medications Medication Instructions Recorded Confirmed Type aspirin 81 mg PO QDAY #0 11/18/17 01/29/19 History tamsulosin 0.4 mg PO QPM 01/29/19 01/29/19 History prednisone 50 mg PO DAILY #5 tab 09/13/19 Rx Allergies Allergy/AdvReac Type Severity Reaction Status Date / Time ciprofloxacin [From CIPRO] Allergy Intermediate Itchy Verified 01/29/19 07:50 indomethacin [From INDOCIN] Allergy Intermediate Itchy Verified 01/29/19 07:50 Exam Vital Signs (past 8 hours): - 05/05/20 11:18 05/05/20 11:37 05/05/20 12:07 Temperature 99.3 F Pulse Rate 103 H 95 H 98 H Respiratory Rate 18 Blood Pressure 153/80 H Pulse Oximetry 100 95 05/05/20 12:30 05/05/20 13:00 05/05/20 13:41 Temperature Pulse Rate 97 H 98 H 104 H Respiratory Rate Blood Pressure 147/74 H Pulse Oximetry 94 95 93 05/05/20 14:00 05/05/20 14:30 05/05/20 15:00 Temperature Pulse Rate 102 H 103 H Respiratory Rate Blood Pressure 144/75 H 140/73 145/76 H Pulse Oximetry 91 93 05/05/20 16:50 Temperature 98.7 F Pulse Rate 100 H Respiratory Rate 18 Blood Pressure 135/77 Pulse Oximetry 92 Oxygen Delivery Method Room Air,CPAP Objective Imaging CT scan - abdomen: Radiologist's impression: [place] [address] CT Scan Report Signed Patient: Won Waller SR [facility]#: [id number] : 9Acct:[id number] Age/Sex: 79 / MDate of Service: 05/05/20 Loc: ED Accession Number: [id number] Procedure: CT abdomen pelvis w con Ordering Provider: Jerel Tidwell MD PROCEDURE: CT ABDOMEN PELVIS W CON INDICATIONS: IV contrast only/lower abdominal pain/left lower quadrant pa TECHNIQUE: After the administration of intravenous contrast, 5 mm thick sections acquired from the diaphragm to the symphysis. 5 mm coronal and sagittal reformats were acquired. For radiation dose reduction, the following was used: automated exposure control, adjustment of mA and/or kV according to patient size. COMPARISON: Outside Film, CT, CT ABDOMEN PELVIS WITH CONTRAST, 11/20/2019, 22:06. FINDINGS: Image quality: Excellent. ABDOMEN: Lung bases: Lung bases are clear. Heart size is normal. Solid organs: Liver is normal in size . Ill-defined enhancing focus within the lateral segment left hepatic lobe measuring 16 mm is not significantly changed. Diffusely decreased hepatic density is present, as before. Gallbladder is within normal limits . Biliary system is non dilated. Pancreas enhances normally. Spleen is normal in size and enhancement. No adrenal nodules. Kidneys demonstrate normal size and enhancement, without hydronephrosis. Peritoneum and bowel: Examination is limited by lack of oral contrast. There is a moderate hiatal hernia, new since the prior examination. Stomach is de compressed. Small bowel is decompressed. Colon is nondistended. Appendix is within normal limits. Diverticulosis of the descending and sigmoid colon. There is thickening of the descending colon. Fistule between the sigmoid and descending colon within the left hemiabdomen are present, as before, with surrounding scarring. There is an increased 25 mm diameter spiculated rounded density within the left hemiabdomen amongst the fistulae. There is thickening of the sigmoid colon, as well as moderate fat stranding within the perirectal mesocolon. No free fluid or air. Nodes and vessels: No retroperitoneal or mesenteric adenopathy by size criteria. Aorta and inferior vena cava are normal in size. Miscellaneous: No ventral hernias. PELVIS: Genitourinary: Bladder wall thickness is normal. Prostate is enlarged. Miscellaneous: No inguinal hernias or adenopathy. Bones: No suspicious bony lesions. No vertebral body compression fractures. IMPRESSION: 1. Limited evaluation of the bowel secondary to lack of oral contrast. 2. 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 3. Thickening of the descending colon, consistent with ischemia versus infection versus inflammation. Underlying neoplasm may also be present. 4. Increased spiculated density within the left colonic mesentery, which could indicate scarring, or underlying neoplasm. 5. Proctitis. 6. Normal appendix. 7. Hiatal hernia. 8. No change in left hepatic lobe hemangioma. 9. Prostate enlargement. 10. Hepatic steatosis. Dictated by: Jeffry Hill M.D. on 05/05/2020 at 13:43 Approved by: Jeffry Hill M.D. on 05/05/2020 at 13:50 Labs Result Diagrams: 05/05/20 12:10 05/05/20 12:10 Labs: Laboratory Results - last 24 hr 05/05/20 05/05/20 05/05/20 12:10 12:10 15:30 WBC 13.0 H RBC 4.71 Hgb 13.4 L Hct 40.1 L MCV 85.1 MCH 28.4 MCHC 33.4 RDW 14.5 Plt Count 146 L Neut % (Auto) 85.1 H Lymph % (Auto) 10.6 L [place] % (Auto) 3.8 Eos % (Auto) 0.3 L Baso % (Auto) 0.2 Neut # (Auto) 60286 H Lymph # (Auto) 1400 [place] # (Auto) 500 Eos # (Auto) 0 Baso # (Auto) 0 Sodium 137 Potassium 4.0 Chloride 104 Carbon Dioxide 25 BUN 17 Creatinine 1.06 Estimated GFR > 60.0 BUN/Creatinine Ratio 16.0 Glucose 102 Calcium 9.4 Total Bilirubin 0.9 AST 31 ALT 24 Alkaline Phosphatase 85 Total Protein 8.0 Albumin 3.9 Globulin 4.1 Albumin/Globulin Ratio 1.0 Lipase 139 COVID-19 PCR Negative Assessment & Plan Assessment and plan (1) Abdominal pain: Qualifiers: Abdominal location: lower abdomen, unspecified Qualified Code(s): R10.30 - Lower abdominal pain, unspecified Status: Acute (2) Diverticulitis: Status: Resolved (3) Enlarged prostate: Status: Acute (4) Abnormal CT scan, gastrointestinal tract: Status: Acute (5) Bloating: Status: Acute (6) Leukocytosis: Status: Acute (7) Obesity (BMI 30-39.9): Status: Acute Assessment & Plan narrative: This is an 79 yo man with symptoms, labs, and CT scan concerning for acute on chronic colitis with underlying stricture 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 The patient is admitted to medicine for treatment of his colitis with antibiotics, and further evaluation regarding stricture or fistula of the bowel. 45 minutes were spent in face to face time with the patient, chart review, and discussion with other treating physicians. More than 50% of the time was spent in counseling and co-ordination of care regarding his medical history, current symptoms, past evaluation and surgical plan, recommendations for antibiotics and barium enema, potential for future surgery back at [facility] or here depending on his preference. The patient and his verbalized understanding and agreement with this plan. The plan was discussed with Dr. Dsouza and the patient's nurse. Recommendations: Clear liquid diet IV antibiotic (zosyn) IV fluids DVT ppx Barium enema Get records from [facility] labs dispo pending improvement on abx and no need for surgery on this admission identified on BE
--- NOTE | 2020-05-05 18:57 | PM.HP.1 ---
History of Present Illness History of Present Illness Date Patient Seen: 05/05/20 Chief complaint: bloated,lower abdominal pain Narrative: The patient is an 79-year-old male with a history of gout, benign prostatic hypertrophy, and diverticulitis who was scheduled to have diverticular surgery but due to cold that his elective procedure was canceled. The patient had a colonoscopy in 2019. That did confirm diverticulitis. The patient was well until today when he developed abdominal discomfort. He reported abdominal distension and abdominal pain. He also reported burning with urination. He has had fever to 102. He has had night sweats. He denies any nausea vomiting or diarrhea. He has had no hematemesis melena or bright red blood per rectum. The patient has had no shortness of breath or chest pain. He denies any weight loss or weight gain. The patient was brought into the emergency room for evaluation. In the emergency room he underwent CT scan of the abdomen and pelvis. The CT results revealed the following:Limited evaluation of the bowel secondary to lack of oral contrast. 2. 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 3. Thickening of the descending colon, consistent with ischemia versus infection versus inflammation. Underlying neoplasm may also be present. 4. Increased spiculated density within the left colonic mesentery, which could indicate scarring, or underlying neoplasm. 5. Proctitis. 6. Normal appendix. 7. Hiatal hernia. 8. No change in left hepatic lobe hemangioma. 9. Prostate enlargement. 10. Hepatic steatosis. Patient is admitted to the hospital for IV antibiotics, and further evaluation of possible fistula. Patient History Medical History (Updated 05/05/20 @ 19:27 by Renee Dsouza MD) Cardiomegaly (Acute) Diverticulitis (Resolved) Enlarged prostate (Acute) Gout (Acute) Surgical History History of circumcision (Resolved) Family & Social History Family History (Updated 05/05/20 @ 19:35 by Renee Dsouza MD) Grandmother Kidney failure Father Poisoning and toxic reactions caused by animals and plants Other Family history non-contributory Social History: household members spouse Prior Living Arrangements Apartment/Condo Safety & Behavioral: Feels Safe in Current Yes Environment Been Physically Hurt or No Threatened By a Person Suicidal Ideation Description None Suicide Plan Description No Plan Tobacco & Substance use: Smoking Status Never smoker alcohol intake frequency 0-2 drinks per day Substance Use Type does not use Meds Home Medications and Allergies Home Medications Medication Instructions Recorded Confirmed Type aspirin 81 mg PO QDAY #0 11/18/17 01/29/19 History tamsulosin 0.4 mg PO QPM 01/29/19 01/29/19 History prednisone 50 mg PO DAILY #5 tab 09/13/19 Rx Allergies Allergy/AdvReac Type Severity Reaction Status Date / Time ciprofloxacin [From CIPRO] Allergy Intermediate Itchy Verified 01/29/19 07:50 indomethacin [From INDOCIN] Allergy Intermediate Itchy Verified 01/29/19 07:50 Review of Systems Review of Systems ROS: Yes All systems reviewed with the patient and are negative except as otherwise documented Exam Vital Signs (past 8 hours): - 05/05/20 11:18 05/05/20 11:37 05/05/20 12:07 Temperature 99.3 F Pulse Rate 103 H 95 H 98 H Respiratory Rate 18 Blood Pressure 153/80 H Pulse Oximetry 100 95 05/05/20 12:30 05/05/20 13:00 05/05/20 13:41 Temperature Pulse Rate 97 H 98 H 104 H Respiratory Rate Blood Pressure 147/74 H Pulse Oximetry 94 95 93 05/05/20 14:00 05/05/20 14:30 05/05/20 15:00 Temperature Pulse Rate 102 H 103 H Respiratory Rate Blood Pressure 144/75 H 140/73 145/76 H Pulse Oximetry 91 93 05/05/20 16:50 Temperature 98.7 F Pulse Rate 100 H Respiratory Rate 18 Blood Pressure 135/77 Pulse Oximetry 92 Oxygen Delivery Method Room Air,CPAP Narrative Exam Narrative: Pleasant elderly male in no obvious distress HEENT: Normocephalic atraumatic, extraocular muscles are intact, oropharynx is clear, neck is supple without adenopathy Lungs: Clear to auscultation Cardiac exam: Regular rate and rhythm normal S1-S2 with a 2/6 systolic ejection murmur Abdomen: Soft, mildly distended, mildly tender in the left and right lower quadrants, no rebound tenderness, no board-like rigidity, no palpable mass Extremities: No edema Neuro exam: Nonfocal Skin exam: No lesion Psychiatric exam patient is awake and alert, answers questions appropriately, no delusions, no hallucination Objective Labs Result Diagrams: 05/05/20 12:10 05/05/20 12:10 Labs: Laboratory Results - last 24 hr 05/05/20 05/05/20 05/05/20 12:10 12:10 15:30 WBC 13.0 H RBC 4.71 Hgb 13.4 L Hct 40.1 L MCV 85.1 MCH 28.4 MCHC 33.4 RDW 14.5 Plt Count 146 L Neut % (Auto) 85.1 H Lymph % (Auto) 10.6 L [place] % (Auto) 3.8 Eos % (Auto) 0.3 L Baso % (Auto) 0.2 Neut # (Auto) 52885 H Lymph # (Auto) 1400 [place] # (Auto) 500 Eos # (Auto) 0 Baso # (Auto) 0 Sodium 137 Potassium 4.0 Chloride 104 Carbon Dioxide 25 BUN 17 Creatinine 1.06 Estimated GFR > 60.0 BUN/Creatinine Ratio 16.0 Glucose 102 Calcium 9.4 Total Bilirubin 0.9 AST 31 ALT 24 Alkaline Phosphatase 85 Total Protein 8.0 Albumin 3.9 Globulin 4.1 Albumin/Globulin Ratio 1.0 Lipase 139 COVID-19 PCR Negative Assessment & Plan Assessment & Plan narrative: 79-year-old male admitted to the hospital with acute abdominal pain -CT scan suggest fistula, findings below - Limited evaluation of the bowel secondary to lack of oral contrast. 2. 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 3. Thickening of the descending colon, consistent with ischemia versus infection versus inflammation. Underlying neoplasm may also be present. 4. Increased spiculated density within the left colonic mesentery, which could indicate scarring, or underlying neoplasm. 5. Proctitis. 6. Normal appendix. 7. Hiatal hernia. 8. No change in left hepatic lobe hemangioma. 9. Prostate enlargement. 10. Hepatic steatosis. -patient with a history of diverticulitis plans for diverticular surgery -elevated white count, recent fever and abdominal pain with CT findings above -will start IV Zosyn, and IV fluid -will recheck labs in the morning -barium enema per Dr. Broussard Gout -patient reports he is not on prednisone but unclear what medication he normally takes -will continue to monitor Benign prostatic hypertrophy -continue tamsulosin Dysuria -UA positive -await final urine culture -continue Zosyn for now Patient reports he is full code His was at the bedside is his surrogate decision maker Patient will be placed on DVT prophylaxis
[2020-05-05] MEDS: SODIUM CHLORIDE 0.45% 1,000 ML 100 ML IV (19:17)
[2020-05-05] MEDS: HYDROMORPHONE 1 MG INJ 0.5 MG IV (20:04)
--- NOTE | 2020-05-05 20:42 | PC.NURSE ---
1650 A/O x3 pt arrived via gurney from ED, able to ambulate to bed, connected to monitoring equipment, at bedside. Oriented pt to room and call light system. Pt able to make needs known, admission assessment completed and documented. No further needs at this time, awaiting provider orders for care. Bed low and locked, call light within reach, will continue to monitor.
[2020-05-06] VITALS (10 sets, daily range): BP systolic 102–151; BP diastolic 59–89; PULSE 77–89; RESP 16–20; TEMP 36.3–36.8; O2SAT 93–100
[2020-05-06] MEDS: PIPERACILLIN-TAZO 3.375 GM/50 ML FROZ.PIGGY IV ×4 (03:07→20:24)
[2020-05-06] MEDS: HYDROMORPHONE 1 MG INJ 0.5 MG IV (04:57)
[2020-05-06 05:14] LABS: Add Manual Diff / Slide Review NO; Basophils Absolute Auto 100 /uL (0-100); Basophils Percent Auto 0.6 % (0-2); Eosinophils Absolute Auto 100 /uL (0-450); Eosinophils Percent Auto 1.5 % (2-4); Hematocrit 37.5 % (41-53); Hemoglobin 12.6 g/dL (13.5-17.5); Lymphocytes Absolute Auto 1300 /uL (1100-4500); Lymphocytes Percent Auto 15.2 % (25-40); Mean Corpuscular HGB Conc 33.7 % (30-36); Mean Corpuscular Hemoglobin 28.6 PG (26-34); Mean Corpuscular Volume 84.9 fL (80-100); Monocytes Absolute Auto 500 /uL (0-900); Neutrophils Absolute Auto 6300 /uL (1500-7000); Neutrophils Percent Auto 76.7 % (50-75); Platelet Count 154 X10^3/uL (150-400); Red Blood Cell Count 4.42 X10^6/uL (4.5-5.9); Red Cell Distribution Width 14.9 % (11.6-14.8); White Blood Cell Count 8.2 X10^3/uL (4.5-11.0)
[2020-05-06 05:21] LABS: Magnesium 2.2 mg/dL (1.6-2.3)
[2020-05-06 05:25] LABS: Alanine Aminotransferase 24 IU/L (<50); Albumin 3.3 g/dL (3.5-5.0); Albumin Globulin Ratio 0.9 (1.0-2.8); Alkaline Phosphatase 75 U/L (38-126); Aspartate Aminotransferase 31 IU/L (17-59); BUN Creatinine Ratio 14.9 (6-22); Bilirubin Total 0.9 mg/dL (0.2-1.3); Blood Urea Nitrogen 17 mg/dL (9-20); Carbon Dioxide 22 mmol/L (22-32); Chloride 106 mmol/L (98-107); Estimated Glomerular Filt Rate > 60.0 mL/min (>60); Globulin 3.7 g/dL (1.7-4.1); Glucose 97 mg/dL (80-110); HEMOLYSIS < 15 (0-50); Potassium 3.7 mmol/L (3.4-5.1); Sodium 135 mmol/L (137-145)
[2020-05-06 05:30] LABS: NT-proBNP (BNP-Adult 18+) 94 pg/mL (<450)
[2020-05-06] MEDS: SODIUM CHLORIDE 0.45% 1,000 ML 100 ML IV ×2 (06:31→17:42)
--- NOTE | 2020-05-06 08:46 | P.PN_ITS ---
Subjective Subjective Date Patient Seen: 05/06/20 Time Patient Seen: 08:46 Interval history: No acute events overnight. Pt says he has passed gas and stool. He says his pain is the same, but no worse. Exam Vital Signs (past 8 hours): - 05/06/20 01:07 05/06/20 04:58 05/06/20 08:00 Temperature 97.5 F L 98.2 F 97.4 F L Pulse Rate 89 83 82 Respiratory Rate 16 18 20 Blood Pressure 102/65 129/66 108/59 L Pulse Oximetry 100 94 Oxygen Delivery Method Room Air Narrative Exam Narrative: GENERAL: Alert, comfortable. Answers questions promptly and appropriately. Vital signs noted. HENT: Normocephalic, atraumatic. Hearing intact. EYES: Conjunctiva pink, sclera white, no periorbital swelling. CARDIOVASCULAR: Regular rate. No pedal edema. RESPIRATORY: Non-tachypneic, breathing comfortably on room air. GASTROINTESTINAL: Abdomen soft and rounded; focal TTP in LLQ GENITALURINARY: No flank tenderness. MUSCULOSKELETAL: Equal tone and mass bilaterally. SKIN: Warm, dry, soft, appropriate color for ethnicity. No other lesions, rashes, or wounds. NEURO: Alert and Oriented X 3. No gross sensory deficits, or cognitive issues. PSYCH: Appropriate affect and mood. Objective Labs Result Diagrams: 05/06/20 04:55 05/06/20 04:55 Labs: Laboratory Results - last 24 hr 05/05/20 05/05/20 05/05/20 12:10 12:10 12:28 WBC 13.0 H RBC 4.71 Hgb 13.4 L Hct 40.1 L MCV 85.1 MCH 28.4 MCHC 33.4 RDW 14.5 Plt Count 146 L Neut % (Auto) 85.1 H Lymph % (Auto) 10.6 L [place] % (Auto) 3.8 Eos % (Auto) 0.3 L Baso % (Auto) 0.2 Neut # (Auto) 89258 H Lymph # (Auto) 1400 [place] # (Auto) 500 Eos # (Auto) 0 Baso # (Auto) 0 Sodium 137 Potassium 4.0 Chloride 104 Carbon Dioxide 25 BUN 17 Creatinine 1.06 Estimated GFR > 60.0 BUN/Creatinine Ratio 16.0 Glucose 102 Calcium 9.4 Magnesium Total Bilirubin 0.9 AST 31 ALT 24 Alkaline Phosphatase 85 NT-Pro-B Natriuret Pep Total Protein 8.0 Albumin 3.9 Globulin 4.1 Albumin/Globulin Ratio 1.0 Lipase 139 Nasal Screen MRSA (PCR) Negative for mrsa COVID-19 PCR 05/05/20 05/06/20 05/06/20 15:30 04:55 04:55 WBC 8.2 RBC 4.42 L Hgb 12.6 L Hct 37.5 L MCV 84.9 MCH 28.6 MCHC 33.7 RDW 14.9 H Plt Count 154 Neut % (Auto) 76.7 H Lymph % (Auto) 15.2 L [place] % (Auto) 6.0 Eos % (Auto) 1.5 L Baso % (Auto) 0.6 Neut # (Auto) 6300 Lymph # (Auto) 1300 [place] # (Auto) 500 Eos # (Auto) 100 Baso # (Auto) 100 Sodium 135 L Potassium 3.7 Chloride 106 Carbon Dioxide 22 BUN 17 Creatinine 1.14 Estimated GFR > 60.0 BUN/Creatinine Ratio 14.9 Glucose 97 Calcium 9.0 Magnesium Total Bilirubin 0.9 AST 31 ALT 24 Alkaline Phosphatase 75 NT-Pro-B Natriuret Pep 94 Total Protein 7.0 Albumin 3.3 L Globulin 3.7 Albumin/Globulin Ratio 0.9 L Lipase Nasal Screen MRSA (PCR) COVID-19 PCR Negative 05/06/20 04:55 WBC RBC Hgb Hct MCV MCH MCHC RDW Plt Count Neut % (Auto) Lymph % (Auto) [place] % (Auto) Eos % (Auto) Baso % (Auto) Neut # (Auto) Lymph # (Auto) [place] # (Auto) Eos # (Auto) Baso # (Auto) Sodium Potassium Chloride Carbon Dioxide BUN Creatinine Estimated GFR BUN/Creatinine Ratio Glucose Calcium Magnesium 2.2 Total Bilirubin AST ALT Alkaline Phosphatase NT-Pro-B Natriuret Pep Total Protein Albumin Globulin Albumin/Globulin Ratio Lipase Nasal Screen MRSA (PCR) COVID-19 PCR Assessment & Plan Assessment & Plan narrative: This is an 79 yo man with symptoms, labs, and CT scan concerning for acute on chronic colitis with underlying stricture 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 The patient is admitted to medicine for treatment of his colitis with antibiotics, and further evaluation regarding stricture or fistula of the bowel. His WBC has come down, but pain is unchanged. Will follow up later today after BE is done. Would continue clears and Abx for now, ambulation as much as tolerated. Recommendations: Clear liquid diet IV antibiotic (zosyn) IV fluids as needed DVT ppx Barium enema Get records from [facility] labs dispo pending improvement on abx and no need for surgery on this admission travis ntified on BE COVID-19 COVID-19 status: Negative Result date/Date tested (Pos, Neg/Pending): 05/05/20 Time Spent With Patient Time with patient: 15-24 minutes Quality VTE Deep Vein Thrombosis/Pulmonary Embolism Present on Admission: No
[2020-05-06] MEDS: DOCUSATE 100 MG CAPSULE PO ×2 (10:15→20:24)
[2020-05-06] MEDS: ASPIRIN EC 81 MG TABLET PO (10:15)
[2020-05-06] MEDS: TAMSULOSIN 0.4 MG CAPSULE PO (10:16)
[2020-05-06] MEDS: ENOXAPARIN 40 MG/0.4 ML SYRINGE SUBCUT (10:16)
--- NOTE | 2020-05-06 11:04 | P.PN_ITS ---
Subjective Subjective Date Patient Seen: 05/06/20 Interval history: Patient is 79-year-old male admitted with complicated acute on chronic diverticulitis. He reports left lower abdominal pain. He is NPO awaiting barium enema study which is delayed until tomorrow. He reports a slight cough but does not feel short of breath. Exam Vital Signs (past 8 hours): - 05/06/20 04:58 05/06/20 07:32 05/06/20 07:33 Temperature 98.2 F Pulse Rate 83 82 82 Respiratory Rate 18 Blood Pressure 129/66 108/59 L Pulse Oximetry 95 94 05/06/20 08:00 Temperature 97.4 F L Pulse Rate 82 Respiratory Rate 20 Blood Pressure 108/59 L Pulse Oximetry 94 Oxygen Delivery Method Room Air Narrative Exam Narrative: General: Alert very pleasant male in no acute distress Lungs: Clear to auscultation Heart: Regular rhythm Abdomen: Tender left lower quadrant, no guarding Extremities: Warm, dry no edema Neurological: Sensorium intact, nonfocal Objective Labs Result Diagrams: 05/06/20 04:55 05/06/20 04:55 Labs: Laboratory Results - last 24 hr 05/05/20 05/05/20 05/05/20 12:10 12:10 12:28 WBC 13.0 H RBC 4.71 Hgb 13.4 L Hct 40.1 L MCV 85.1 MCH 28.4 MCHC 33.4 RDW 14.5 Plt Count 146 L Neut % (Auto) 85.1 H Lymph % (Auto) 10.6 L [place] % (Auto) 3.8 Eos % (Auto) 0.3 L Baso % (Auto) 0.2 Neut # (Auto) 00734 H Lymph # (Auto) 1400 [place] # (Auto) 500 Eos # (Auto) 0 Baso # (Auto) 0 Sodium 137 Potassium 4.0 Chloride 104 Carbon Dioxide 25 BUN 17 Creatinine 1.06 Estimated GFR > 60.0 BUN/Creatinine Ratio 16.0 Glucose 102 Calcium 9.4 Magnesium Total Bilirubin 0.9 AST 31 ALT 24 Alkaline Phosphatase 85 NT-Pro-B Natriuret Pep Total Protein 8.0 Albumin 3.9 Globulin 4.1 Albumin/Globulin Ratio 1.0 Lipase 139 Nasal Screen MRSA (PCR) Negative for mrsa COVID-19 PCR 05/05/20 05/06/20 05/06/20 15:30 04:55 04:55 WBC 8.2 RBC 4.42 L Hgb 12.6 L Hct 37.5 L MCV 84.9 MCH 28.6 MCHC 33.7 RDW 14.9 H Plt Count 154 Neut % (Auto) 76.7 H Lymph % (Auto) 15.2 L [place] % (Auto) 6.0 Eos % (Auto) 1.5 L Baso % (Auto) 0.6 Neut # (Auto) 6300 Lymph # (Auto) 1300 [place] # (Auto) 500 Eos # (Auto) 100 Baso # (Auto) 100 Sodium 135 L Potassium 3.7 Chloride 106 Carbon Dioxide 22 BUN 17 Creatinine 1.14 Estimated GFR > 60.0 BUN/Creatinine Ratio 14.9 Glucose 97 Calcium 9.0 Magnesium Total Bilirubin 0.9 AST 31 ALT 24 Alkaline Phosphatase 75 NT-Pro-B Natriuret Pep 94 Total Protein 7.0 Albumin 3.3 L Globulin 3.7 Albumin/Globulin Ratio 0.9 L Lipase Nasal Screen MRSA (PCR) COVID-19 PCR Negative 05/06/20 04:55 WBC RBC Hgb Hct MCV MCH MCHC RDW Plt Count Neut % (Auto) Lymph % (Auto) [place] % (Auto) Eos % (Auto) Baso % (Auto) Neut # (Auto) Lymph # (Auto) [place] # (Auto) Eos # (Auto) Baso # (Auto) Sodium Potassium Chloride Carbon Dioxide BUN Creatinine Estimated GFR BUN/Creatinine Ratio Glucose Calcium Magnesium 2.2 Total Bilirubin AST ALT Alkaline Phosphatase NT-Pro-B Natriuret Pep Total Protein Albumin Globulin Albumin/Globulin Ratio Lipase Nasal Screen MRSA (PCR) COVID-19 PCR Assessment & Plan Assessment & Plan narrative: Patient is 79-year-old male admitted with complaints of left lower abdominal pain due to complicated acute on chronic diverticulitis. 1. Acute on chronic sigmoid diverticulitis, present on admission, active -possible stricture or colo-colonic fistula on CT -barium enema pending -appreciate surgery consult by Dr. Broussard -continue NPO, IV fluids, IV antibiotic with Zosyn 2. BPH, chronic -continue tamsulosin DVT prophylaxis: Enoxaparin Quality VTE Deep Vein Thrombosis/Pulmonary Embolism Present on Admission: No
[2020-05-06] MEDS: OXYCODONE IR 5 MG TABLET PO (12:38)
--- NOTE | 2020-05-06 14:29 | CM.DANOTE ---
Discharge Planning/Care Management DCP: assessment: case received, EMR reviewed and met with pt and his Ramsey during Team Bedside Rounds. Pt is an 79 year old male who admitted yesterday afternoon to care of the hospitalist team. Consulting: [facility] Payer: Medicare and [facility] PCP: Dr. Deepika Lopez is listed./[place] Admission status: INPT: confirmed by UR RN Brittany. Pt is currently being treated for acute on chronic diverticulitis. ? of stricture or fistula on CT: pending barium enema study: planned for today: now delayed until tomorrow. Surgeons are following closely At this point pt is on clears, IV antbiotics and encouraged to ambulate. Willl check in tomorrow and follow for d/c issues and options as full dx and POC are identified. CM Discharge Assessment Start: 05/06/20 14:27 Freq: Status: Active Protocol: Document 05/06/20 14:28 ITV (Rec: 05/06/20 14:29 ITV [id number]) Discharge Planning Assessment Advance Directives? Yes History Provided By Patient,Family Member,Medical Record Has Patient been admitted in last 30 No days? Prior Living Arrangements Apartment/Condo Household Members spouse Comment Ramsey: [phone] Is patient alert and oriented? Yes Review Status In Process
--- NOTE | 2020-05-06 15:22 | PC.NURSE ---
Am shift Barium enema scheduled for 05/07 1300. Pt will continue on clear liquids until then. IV ABX infusing. 1PA to BR. Pain controlled with oxycodone.
[2020-05-07] VITALS (9 sets, daily range): BP systolic 126–155; BP diastolic 59–91; PULSE 76–89; RESP 18–20; TEMP 36.2–36.6; O2SAT 93–98
--- NOTE | 2020-05-07 | DI.RAD.S_ITS ---
PROCEDURE: XR ABDOMEN 1V INDICATIONS: BARIUM ENEMA TECHNIQUE: One view of the abdomen acquired. COMPARISON: None. FINDINGS: Surgical changes and devices: None. Bowel: Bowel gas pattern is normal. Soft tissues: No suspicious abdominal calcifications. Visualized solid organ contours appear normal in size. Bones: No suspicious bony lesions. IMPRESSION: No evidence of bowel obstruction. No gross free air. Dictated by: Jacob Martinez M.D. on 05/07/2020 at 11:43 Approved by: Jacob Martinez M.D. on 05/07/2020 at 11:43
[2020-05-07] MEDS: HYDROMORPHONE 1 MG INJ 0.5 MG IV ×2 (03:26→10:22)
[2020-05-07] MEDS: PIPERACILLIN-TAZO 3.375 GM/50 ML FROZ.PIGGY IV ×2 (03:30→10:23)
[2020-05-07] MEDS: SODIUM CHLORIDE 0.45% 1,000 ML 100 ML IV (03:31)
[2020-05-07] MEDS: ENOXAPARIN 40 MG/0.4 ML SYRINGE SUBCUT (10:23)
--- NOTE | 2020-05-07 11:26 | CM.DPC ---
DCP: continued: Met again with pt and his in Team Bedside Rounds. Pt continues to complain of pain and will be going soon for the barium enema. Dr. Delarosa noted that he would be back later to talk with pt and his after more is known. ? of need for PT. Dr. Delarosa stated that pt is vigorous at baseline but that he wanted nursing staff to get pt out of the room for ambulation. (He has been up from bed to chair to bathroom). RN Fernanda agreeable to same. P: DC planning team will follow as full diagnosis and POC unfold to assist with d/c issues and options. Dr. Macedo and partners are consulting.
[2020-05-07] MEDS: HYDROMORPHONE 0.5 MG INJ IV (13:39)
[2020-05-07] MEDS: OXYCODONE IR 5 MG TABLET PO (13:46)
[2020-05-07] MEDS: TAMSULOSIN 0.4 MG CAPSULE PO (13:46)
[2020-05-07] MEDS: ACETAMINOPHEN 325 MG TABLET 650 MG PO (13:47)
--- NOTE | 2020-05-07 14:01 | PC.NURSE ---
Day shift: Per Dr Delarosa Pt can eat and drink now.
--- NOTE | 2020-05-07 14:39 | P.PN_ITS ---
Subjective Subjective Date Patient Seen: 05/07/20 Time Patient Seen: 15:31 Interval history: No acute events overnight. Pain is slightly improved. Patient reports passing gas. He says he has had a bowel movement since being in the hospital, but not yesterday or today. Exam Vital Signs (past 8 hours): - 05/07/20 08:00 05/07/20 12:00 Temperature 97.2 F L 97.6 F Pulse Rate 89 76 Respiratory Rate 20 19 Blood Pressure 155/84 H 144/74 H Pulse Oximetry 94 97 Oxygen Delivery Method Room Air Narrative Exam Narrative: GENERAL: Alert, comfortable. Answers questions promptly and appropriately. Vital signs noted. HENT: Normocephalic, atraumatic. Hearing intact. EYES: Conjunctiva pink, sclera white, no periorbital swelling. CARDIOVASCULAR: Regular rate. No pedal edema. RESPIRATORY: Non-tachypneic, breathing comfortably on room air. GASTROINTESTINAL: Abdomen soft and rounded; mild tenderness to palpation in lower midline and left lower quadrant GENITALURINARY: No flank tenderness. MUSCULOSKELETAL: Equal tone and mass bilaterally. SKIN: Warm, dry, soft, appropriate color for ethnicity. No other lesions, rashes, or wounds. NEURO: Alert and Oriented X 3. No gross sensory deficits, or cognitive issues. PSYCH: Appropriate affect and mood. 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 His pain has improved on antibiotics. We have reviewed his records from [facility] it appears his current CT scan and physical exam findings are very similar to multiple past episodes of admission for diverticulitis. His planned surgery for the spring, to be done at [facility], was discontinued because of COVID-19. He does not seem to have any particular indication for surgical intervention on this admission. We will advance his diet, and plan on dispo on p.o. antibiotics as long as he tolerates p.o. well. He may follow up with his surgeon at [facility], or with [facility] if he would like to have his surgery at [facility]. I have discussed all this with the patient and Dr. Delarosa as well. Recommendations: Advanced diet as tolerated IV antibiotic (zosyn), p.o. Augmentin when he goes home DVT ppx DC Barium enema COVID-19 COVID-19 status: Negative Result date/Date tested (Pos, Neg/Pending): 05/05/20 Time Spent With Patient Time with patient: 15-24 minutes Quality VTE Deep Vein Thrombosis/Pulmonary Embolism Present on Admission: No
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
== END 2020-05-07 17:30 | disposition home or self-care (01) | DRG 392 ==
LOC: ED 15:06 → ICU 16:06 → AC 05-07 12:54
PROVIDERS: Surgery; Admitting Provider Internal Medicine; Emergency Provider Emergency Medicine; PCP Family Medicine; Referring Provider Emergency Medicine; Visit Provider Internal Medicine
DX: K57.32 Diverticulitis of large intestine without perforation or abscess without bleeding (principal); K63.2 Fistula of intestine; N40.0 Benign prostatic hyperplasia without lower urinary tract symptoms
CPT/HCPCS: 36415; 51798; 74018; 74177; 80053; 81003; 83690; 83735; 83880; 85025; 87635; 87797; 96361; 96365; 96367; 99284; J1170; J1650; J2543; J7050; Q9967

== ENCOUNTER → 2023-11-05 07:00 | Outpatient (CLI) | payer OTHER, SELFPAY ==
[2020-05-05 16:53] VITALS: BMI 38.6
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
== END ==
PROVIDERS: PCP Family Medicine; Referring Provider Internal Medicine; Visit Provider Internal Medicine
DX: R01.1 Cardiac murmur, unspecified (principal); I08.3 Combined rheumatic disorders of mitral, aortic and tricuspid valves
CPT/HCPCS: 93306

== ENCOUNTER → 2025-06-03 09:51 | Outpatient (CLI) | payer OTHER, SELFPAY ==
[2020-05-05 16:53] VITALS: BMI 38.6
--- NOTE | 2025-06-03 10:51 | DIAB.MNTFU ---
Follow-up Diabetes Medical Nutrition Therapy Assessment Name: Won Waller Sr Date: 06/03/25 Time: 100a Dx: Obesity and Type II Diabetes Provider: Rodrigo Upton presents for weight management/ Dm visit. Endorses ALBERTO and narcolepsy dx as well. Interested in wt management in the setting of T2Dm Reports the need to add more veggies. States they often have veggies at meals, but portions are small. States he grew up eating larger portions of veggies, ie jessica greens and cabbage. States does most of the cooking and she does not cook much veggies. Endorses knowing how to cook veggies. States he thinks he is getting 40oz water per day. Endorses BM daily. Cut out rice lately. States dinner portions have been smaller or just a snack. Anthropometrics: Ht: Wt: declined wt today 226# reported 04/2025 Weight history: Physical Activity: Started PT on Saturdays and has been doing these exercises and stretches at home daily. Motivated to improve foot discomfort to get back to golfing. Self-Monitoring Blood Glucose: None. no supplies. Endorses thinking about checking since his does. 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 Date Pre Post Pre Post Pre Post HS Diabetes Medications: None Pertinent Labs: Hga1c: 6.3% 03/2025 Past Medical History: (Last Reviewed 05/05/20 @ 20:37 by Dahlia Macedo MD) Cardiomegaly Mild Diverticulitis Enlarged prostate Gout Nutrition Rx: Carbohydrates: Meal:45g Snack:15-30g Nutrition Diagnosis: - Predicted inadequate fiber intake r/t limited whole grains and veggies aeb diet recall- in progress - Physical inactivity r/t stage of change aeb pt report of no program currently - improved/in progress - Self monitoring deficit r/t no supplies for SMBG aeb pt report- continue Intervention: This participant was very receptive. Provided appropriate educational handouts. Discussed the following topics: Completed intake assessment. Discussed barriers to care. Strategies for adding veggies you cook Recs for fluids per day SMBG supplies and getting a few BG Created SMART goals for patient self-care and success. Goals: Restart daily exercises safely- met Increase veggies at dinner - in progress Ask PCP for SMBG supplies- new Aim for 60oz water daily- new billing supervisor greens to cook- new Follow-up: [facility] follow-up in 3-4 weeks Madelyn Scott RDN, KOBI Certified Diabetes Care and Juice Packaging Machines Setter P: [phone] Thank you for this referral
== END ==
PROVIDERS: PCP Family Medicine; Referring Provider Family Medicine
DX: E11.9 Type 2 diabetes mellitus without complications (principal); E66.9 Obesity, unspecified; Z71.3 Dietary counseling and surveillance
CPT/HCPCS: 97803

== ENCOUNTER → 2025-07-08 10:02 | Outpatient (CLI) | payer OTHER, SELFPAY ==
[2020-05-05 16:53] VITALS: BMI 38.6
--- NOTE | 2025-07-08 10:07 | DIAB.MNTFU ---
Follow-up Diabetes Medical Nutrition Therapy Assessment Name: Won Waller Sr Date: 07/08/25 Time: 1010-1055am Dx: Obesity and Type II Diabetes Provider: Rodrigo Won presents for weight management/ Dm visit. Endorses ALBERTO and narcolepsy dx as well. Interested in wt management in the setting of T2Dm. States hgA1c went down but unsure of value. Trying to increase veggies. Eating some jessica greens. States eating veggies 1-2x per day. More soups with veggies lately. Using an karen to track water. Endorses up to 80oz per day. Also asked PCP about SMBG supplies. Plans to also mention [facility] to [facility]. Got a steroid shot in feet to reduce pain. Anticipate that this has impacted BG values, though he is not currently checking BG. Diet Recall: 8am: protein shake 9-10am: nothing OR medeiros and toast x 1-2 1pm: half sandwich 6-7pm: pork steak with corn on baldwin OR soup with veggies, light meat water Avoiding potatoes, noodles, rice, pasta. States these foods will make him tired, hyperglycemia? Anthropometrics: Ht: Wt: 216# reported 06/2025 226# reported 04/2025 Physical Activity: PT on Saturdays and has been doing these exercises and stretches at home daily. Has not started Marcos Chi yet. Doing some resistance exercises on porch, just started recetly. Self-Monitoring Blood Glucose: None. no supplies. Endorses thinking about checking since his does. 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 Date Pre Post Pre Post Pre Post HS Diabetes Medications: None Pertinent Labs: Hga1c: 6.3% 03/2025 Past Medical History: (Last Reviewed 05/05/20 @ 20:37 by Dahlia Macedo MD) Cardiomegaly Mild Diverticulitis Enlarged prostate Gout Nutrition Rx: Carbohydrates: Meal:45gSnack:15-30g Nutrition Diagnosis: - Predicted inadequate fiber intake r/t limited whole grains and veggies aeb diet recall- in progress - Physical inactivity r/t stage of change aeb pt report of no program currently - improved/in progress - Self monitoring deficit r/t no supplies for SMBG aeb pt report- continue Intervention: This participant was very receptive. Provided appropriate educational handouts. Discussed the following topics: Veggie intake Physical activity SMBG Steroid impact on BG Created SMART goals for patient self-care and success. 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
== END ==
PROVIDERS: PCP Physician Assistant; Referring Provider Internal Medicine Cardiovascular Disease
DX: E66.9 Obesity, unspecified (principal); E11.9 Type 2 diabetes mellitus without complications; Z71.3 Dietary counseling and surveillance
CPT/HCPCS: 97803

== ENCOUNTER → 2025-08-04 10:01 | Outpatient (CLI) | payer OTHER, SELFPAY ==
[2020-05-05 16:53] VITALS: BMI 38.6
--- NOTE | 2025-08-04 10:03 | DIAB.MNTFU ---
Follow-up Diabetes Medical Nutrition Therapy Assessment Name: Won Waller Sr Date: 08/04/25 Time: 10a Dx: Obesity and Type II Diabetes Provider: Rodrigo Won presents for weight management/ Dm visit. Endorses ALBERTO and narcolepsy dx as well. Interested in wt management in the setting of T2Dm. Foot and back pain. Using inserts in shoes. Just finished PT. Endorses neuropathy as well. Eating two meals per day lately due to waking up later. usually limits rice, though had some last night. French cabbage or jessica greens lately. Reports his main goal right now is to start walking, but needs better shoes. Diet Recall: 9am: protein shake 10am: pb sandwich on wheat 1pm: none 6-7pm: fish, 1-1.5c, ashley paste OR small portion veggies with protein (beef) water Avoiding potatoes, noodles, rice, pasta. Limited snacks or sweets. Anthropometrics: Ht: Wt: 214-215# reported 07/2025 216# reported 06/2025 226# reported 04/2025 Physical Activity: done with PT on Saturdays. Doing a little sunshine chi. Body weight exercises every day, 30 mins. Plans to go for walks once he gets better shoes. Self-Monitoring Blood Glucose: None. no supplies. Endorses thinking about checking since his does. 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 Has [facility] app[facility] this [facility]. Date Pre Post Pre Post Pre Post HS Diabetes Medications: None Pertinent Labs: Hga1c: 6.3% 03/2025 Past Medical History: (Last Reviewed 05/05/20 @ 20:37 by Dahlia Macedo MD) Cardiomegaly Mild Diverticulitis Enlarged prostate Gout Nutrition Rx: Carbohydrates: Meal:45gSnack:15-30g Nutrition Diagnosis: - Predicted inadequate fiber intake r/t limited whole grains and veggies aeb diet recall- in progress - Physical inactivity r/t shoe quality aeb pt report - new - Self monitoring deficit r/t no supplies for SMBG aeb pt report- continue Intervention: This participant was very receptive. Provided appropriate educational handouts. Discussed the following topics: Veggie intake Physical activity and strategies for increasing SMBG Personal goals for weight loss Created SMART goals for patient self-care and success. Goals: Ask [facility] provider for SMBG supplies- in progress Try home resistance exercises every other day- met Eat veggies daily- in progress Check out new shoes for walking- new Add carrots and celery raw as snack- new Follow-up: [facility] follow-up in 4 weeks Madelyn Scott RDN, KOBI Certified Diabetes Care and Financial Health Counselor P: [phone] Thank you for this referral
== END ==
PROVIDERS: PCP Physician Assistant; Referring Provider Internal Medicine Cardiovascular Disease
DX: E11.40 Type 2 diabetes mellitus with diabetic neuropathy, unspecified (principal); E66.9 Obesity, unspecified; Z71.3 Dietary counseling and surveillance
CPT/HCPCS: 97803

== ENCOUNTER → 2025-09-15 10:46 | Outpatient (CLI) | payer OTHER, SELFPAY ==
[2020-05-05 16:53] VITALS: BMI 38.6
--- NOTE | 2025-09-15 11:00 | DIAB.MNTFU ---
Follow-up Diabetes Medical Nutrition Therapy Assessment Name: Won Waller Sr Date: 09/15/25 Time: 11-1150a Dx: Obesity and Type II Diabetes Provider: Rodrigo Won presents for weight management/ Dm visit. Endorses ALBERTO and narcolepsy dx as well. Interested in wt management in the setting of T2Dm. Reports his main goal right now is to start walking. Just bought new shoes. Waking up later. Wants to wake up earlier, ie 6am, to get house work and exercise in. Added 32oz water q morning. Still difficult to add veggies daily. Diet Recall: 10am: protein shake 1030am: pb sandwich on wheat 6-7pm: 2+ cups of spaghetti OR meat and rice x 1c water 2% lactose free milk 16-20oz 1x per day usually in afternoon Sometimes juice Sometimes tea with honey Eating veggies 4x per week, ie carrots or celery Limited snacking. Anthropometrics: Ht: Wt: 215# 08/2025 214-215# reported 07/2025 216# reported 06/2025 226# reported 04/2025 Physical Activity: Bought new shoes with plans to start walking. Working on the house, ie placing shelving, building a wall. Self-Monitoring Blood Glucose: None. no supplies. Endorses thinking about checking since his does. 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 Has asked for SMBG supplies. Date Pre Post Pre Post Pre Post HS Diabetes Medications: None Pertinent Labs: Hga1c: 6.3% 03/2025 Past Medical History: (Last Reviewed 05/05/20 @ 20:37 by Dahlia Macedo MD) Cardiomegaly Mild Diverticulitis Enlarged prostate Gout Nutrition Rx: Carbohydrates: Meal:45gSnack:15-30g Nutrition Diagnosis: - Predicted inadequate fiber intake r/t limited whole grains and veggies aeb diet recall- in progress - Physical inactivity r/t stage of change preparation aeb pt report - new - Self monitoring deficit r/t no supplies for SMBG aeb pt report- continue Intervention: This participant was very receptive. Provided appropriate educational handouts. Discussed the following topics: Veggie intake Physical activity and strategies for increasing Personal goals for weight loss Created SMART goals for patient self-care and success. Goals: Ask [facility] provider for SMBG supplies- in progress Eat veggies daily- in progress Check out new shoes for walking- met Add carrots and celery raw as snack- improved Avoid juice or honey in beverages- new Restart body exercises- new Start walks- new Follow-up: [facility] follow-up in 4-6 weeks Madelyn Scott RDN, KOBI Certified Diabetes Care and Baggage Porter P: [phone] Thank you for this referral
== END ==
PROVIDERS: PCP Physician Assistant; Referring Provider Physician Assistant
DX: E11.9 Type 2 diabetes mellitus without complications (principal); E66.9 Obesity, unspecified; Z71.3 Dietary counseling and surveillance
CPT/HCPCS: 97803